=== PATIENT | male | born 2000 | race Caucasian/White ===

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

== ENCOUNTER 2020-07-31 15:26 | Emergency (ER) | payer SELFPAY ==
[2020-07-31 15:39] VITALS: BP 142/89; PULSE 95; RESP 20; TEMP 36.8; O2SAT 96; BMI 37.1
--- NOTE | 2020-07-31 16:09 | HMH.EDUTC ---
[facility] [place] Disposition Clinical Impression: Pharyngitis Qualifiers: Pharyngitis/tonsillitis etiology: unspecified etiology Qualified Code(s): J02.9 - Acute pharyngitis, unspecified Disposition: Home, Self-Care Condition on Discharge: Good Instructions: DI for Pharyngitis/Tonsillopharyngitis -- Adult, Preventing the Spread of Coronavirus Discharge Instructions Additional Instructions: Drink plenty of fluids. Take tylenol or ibuprofen for pain or fever. Take the medications as directed. Follow up with your regular doctor. GO TO THE ER FOR ANY WORSENING SYMPTOMS FOLLOW THE DIRECTIONS ON THE COVID-19 HAND OUT THAT WE GAVE YOU REGARDING SELF-ISOLATION UNTIL YOU KNOW YOUR COVID-19 RESULTS Prescriptions: Brompheniramine/Pseudoephed/Dm [Bromfed Dm Cough Syrup] 5 ml PO Q6HP PRN #240 syrup PRN Reason: Cough Transmission Status: Received by [facility] Ondansetron [Zofran 4mg ODT] 4 mg PO Q8HP PRN #9 tab.rapdis PRN Reason: Nausea Transmission Status: Received by [facility] Azithromycin [Z-Ion 250mg Tab*] 250 mg PO UD DOSE PK #6 tab Transmission Status: Received by [facility] Referrals: Kenn Hicks MD [Primary Care Provider] - Forms: Work/School Release Time of Disposition: 16:10 Medical Decision Making - Medical Records Medical records reviewed: No: I reviewed the patient's medical records. - Pipo Inquiry Pt receiving controlled substance: No Vital Signs: 07/31/20 15:39 07/31/20 16:18 Temperature 98.2 F 98.2 F Temperature Source Oral Pulse Rate 95 H Pulse Rate [Right Brachial] 95 H Respiratory Rate 20 20 Blood Pressure 142/89 H Blood Pressure [Right Arm] 142/89 H Blood Pressure Mean [Right Arm] 106 Blood Pressure Source [Right Arm] Automatic Cuff Blood Pressure Position [Right Arm] Sitting 02 Sat by Pulse Oximetry 96 Oxygen Delivery Method Room Air - Lab Data Lab results reviewed: Yes: I reviewed the patient's lab results. Lab Results 07/31/20 15:44: Strep Scn Rapid Clinic Negative Orders (Tests/Meds): ORDERS Category Date Time Status Strep Screen Confirmation Stat Micro 07/31/20 15:44 Received [facility] [place] HPI - General Stated complaint: Sore throat Time Seen by Provider: 07/31/20 15:45 Mode of Arrival: Ambulatory Source of Information: Patient Limitations: No Limitations Description of Symptoms (Recalled from Triage Doc. by RN): PATIENT C/O SORE THROAT SINCE THIS MORNING HEENT Symptoms (Recalled from RN notes): Yes Resp Symptoms (Recalled from RN notes): No Skin Symptoms (Recalled from RN notes): No MS Symptoms (Recalled from RN notes): No Functional Status (Recalled from RN notes): WNL - History of Present Illness Provider Complaint: He c/o sore throat since this morning. - Related Data Previous Rx's Medication Instructions Recorded Azithromycin [Z-Ion 250mg Tab*] 250 mg PO UD DOSE PK #6 tab 07/31/20 Brompheniramine/Pseudoephed/Dm 5 ml PO Q6HP PRN #240 syrup 07/31/20 [Bromfed Dm Cough Syrup] Ondansetron [Zofran 4mg ODT] 4 mg PO Q8HP PRN #9 tab.rapdis 07/31/20 Allergies Allergy/AdvReac Type Severity Reaction Status Date / Time No Known Allergies Allergy Verified 10/09/19 15:06 - Worker's Comp Is this a Worker's Comp case?: No [facility] History - Hepatitis A Screen Drug use history?: No High risk sexual behaviors?: No History of sexually transmitted infection?: No Currently employed?: No Childcare worker?: No Do you have indoor plumbing?: Yes Do you have electricity?: Yes Attestation statement:: This patient has been screened for Hepatitis A risk factors. I have reviewed the patient's past medical history: Yes Medical History: Denies:: Diabetes Mellitus Type 1, Diabetes Mellitus Type 2, Hypertension Other Surgeries: Yes: No Previous Surgery, Other Amputation: No Fractures: No Comment: DENTAL SURGERY - Social History Smoking Status: Never smoker Alcohol Intake: never Substa
[2020-07-31 16:18] VITALS: BP 142/89; PULSE 95; RESP 20; TEMP 36.8; O2SAT 96
[2020-07-31 20:27] LABS: UTC Strep Screen (Rapid) Negative (Negative)
== END 2020-07-31 16:20 | disposition home or self-care (01) ==
PROVIDERS: Emergency Provider Nurse Practitioner Family; PCP Emergency Medicine
DX: J02.9 Acute pharyngitis, unspecified (principal); Z20.828 Contact with and (suspected) exposure to other viral communicable diseases
CPT/HCPCS: 87880; 99202; U0003

== ENCOUNTER 2020-10-31 11:44 | Emergency (ER) | payer OTHER, SELFPAY ==
[2020-10-31 12:59] VITALS: BP 139/86; PULSE 93; RESP 16; TEMP 37; O2SAT 96; BMI 40.3
--- NOTE | 2020-10-31 13:03 | HMH.EDUTC ---
[facility] [place] Disposition Clinical Impression: Exposure to COVID-19 virus Disposition: Home, Self-Care Condition on Discharge: Good Instructions: DI for COVID-19 (Suspected or Confirmed ), Coronavirus Disease 2019, COVID-19: Testing and Tracing, Preventing the Spread of Coronavirus Discharge Instructions Additional Instructions: *Monitor Temp, Over the counter Motrin or Tylenol as directed/as needed Tylenol every 4 hours and Motrin every 6 hours (as long as your family doctor has told you that you can take it) for fever or pain. and straight to ER if unable to lower temp less than 101.0 after medication given *Warm salt water gargles may help to soothe the throat *Throat Lozenges *Warm fluids like tea with honey may help to soothe the throat *Sleep elevated *Humidifier/Vaporizer Follow up IMMEDIATELY for new or worsening symptoms or no Noticeable improvement over the next 48-72 hours. 911 for difficulty breathing or swallowing You were tested for today for COVID19 your test result should be back in the next 24-48 hours, you may call to the [facility] to see if your test results are back in the next 48 hours [phone] [facility] hours are 9am-9pm You was given a handout with instructions for Self Quarantine and Self isolation for while you wait on test results and what to do if they are positive If you are positive the Health Dept will be contacting you also Referrals: Kenn Hicks MD [Primary Care Provider] - As needed Time of Disposition: 13:05 Medical Decision Making - Pipo Inquiry Pt receiving controlled substance: No Pipo was queried for this patient: No Vital Signs: 10/31/20 12:59 Temperature 98.6 F Temperature Source Oral Pulse Rate [Right] 93 H Respiratory Rate 16 Blood Pressure [Right Arm] 139/86 Blood Pressure Mean [Right Arm] 103 Blood Pressure Source [Right Arm] Automatic Cuff Blood Pressure Position [Right Arm] Sitting 02 Sat by Pulse Oximetry 96 Oxygen Delivery Method Room Air Orders (Tests/Meds): ORDERS Category Date Time Status Covid-19 Nasal PCR ([facility]) Routine Lab 10/31/20 12:14 Ordered [facility] [place] HPI - General Stated complaint: covid exposure Time Seen by Provider: 10/31/20 13:03 Mode of Arrival: Ambulatory Source of Information: Patient Limitations: No Limitations Description of Symptoms (Recalled from Triage Doc. by RN): pt advises he has loss of taste and wants a covid test HEENT Symptoms (Recalled from RN notes): No Resp Symptoms (Recalled from RN notes): No Skin Symptoms (Recalled from RN notes): No MS Symptoms (Recalled from RN notes): No Functional Status (Recalled from RN notes): na - History of Present Illness Provider Complaint: Patient states that someone in the house recently tested positive for COVID State that he has been having cough and drainage and recently loss his sense of taste and smell so he wanted to come in and get tested - Related Data Previous Rx's Medication Instructions Recorded Azithromycin [Z-Ion 250mg Tab*] 250 mg PO UD DOSE PK #6 tab 07/31/20 Brompheniramine/Pseudoephed/Dm 5 ml PO Q6HP PRN #240 syrup 07/31/20 [Bromfed Dm Cough Syrup] Ondansetron [Zofran 4mg ODT] 4 mg PO Q8HP PRN #9 tab.rapdis 07/31/20 Allergies Allergy/AdvReac Type Severity Reaction Status Date / Time No Known Allergies Allergy Verified 10/09/19 15:06 - Worker's Comp Is this a Worker's Comp case?: No [facility] History - Hepatitis A Screen Drug use history?: No High risk sexual behaviors?: No History of sexually transmitted infection?: No Currently employed?: No Childcare worker?: No Do you have indoor plumbing?: Yes Do you have electricity?: Yes Attestation statement:: This patient has been screened for Hepatitis A risk factors. I have reviewed the patient's past medical history: Yes Medical History: Denies:: Diabetes Mellitus Type 1, Diabetes Mellitus Type 2, Hypertension Other Surgeries: Yes: No Previous Surgery, Other Amputation: No Fractures: No Co
[2020-10-31 13:11] VITALS: BP 139/86; PULSE 87; RESP 16; TEMP 37.1; O2SAT 98
--- NOTE | 2020-10-31 21:24 | PC.NURSE ---
called pt and notified him of positive covid results along with his girlfriend and mother. All live together. Claudette Maki and Miley Joseph
== END 2020-10-31 13:12 | disposition home or self-care (01) ==
PROVIDERS: Emergency Provider Nurse Practitioner; PCP Emergency Medicine
DX: U07.1 COVID-19 (principal)
CPT/HCPCS: 99202; G0463; U0003

== ENCOUNTER → 2021-06-27 11:43 | Outpatient (CLI) | payer SELFPAY ==
[2021-06-27 16:25] LABS: Semen Viscosity Normal (Normal); Volume,Semen 5.8 ml (2.0-5.0); WBCs,Semen Trace
[2021-06-27 16:26] LABS: PH,Semen 8.5 (7.3-8.3); Sperm Count 58 mil/mm3 (20-160)
[2021-06-27 16:28] LABS: 3Hr Motility Quality Rapid Progression (Mod-Rapid); 3Hr Sperm Motility 65 % (50-60); Motility Quality Rapid Progression (Mod-Rapid); Sperm Morphology N (Normal); Sperm Motility 80 % (50-90)
== END ==
PROVIDERS: Visit Provider Obstetrics & Gynecology
DX: Z31.69 Encounter for other general counseling and advice on procreation (principal)
CPT/HCPCS: 89320

== ENCOUNTER 2021-10-15 11:34 | Emergency (ER) | payer OTHER, SELFPAY ==
[2021-10-15 12:38] VITALS: BP 167/98; PULSE 89; RESP 18; TEMP 36.8; O2SAT 98; BMI 39.9
--- NOTE | 2021-10-15 12:45 | HMH.EDUTC ---
[facility] [place] Dis[place] Clinical Impression: Sinusitis Qualifiers: Sinusitis location: unspecified location Chronicity: unspecified Qualified Code(s): J32.9 - Chronic sinusitis, unspecified Disposition: Home, Self-Care Condition on Discharge: Good Instructions: Sinusitis, DI for Sinusitis Additional Instructions: *Monitor Temp, Over the counter Motrin or Tylenol as directed/as needed Tylenol every 4 hours and Motrin every 6 hours (as long as your family doctor has told you that you can take it) for fever or pain. and straight to ER if unable to lower temp less than 101.0 after medication given *Warm salt water gargles may help to soothe the throat *Throat Lozenges *Warm fluids like tea with honey may help to soothe the throat *Sleep elevated *Humidifier/Vaporizer *Flonase 2 sprays in each nostril daily but be aware that it may take 2-3 days before you notice improvement Take medication as prescribed Follow up if no improvement Follow up IMMEDIATELY for new or worsening symptoms or no Noticeable improvement over the next 48-72 hours. 911 for difficulty breathing or swallowing Prescriptions: Benzonatate [Benzonatate 100mg cap] 100 mg PO Q8HP PRN #15 cap PRN Reason: Cough Transmission Status: Pending to [facility] Amoxicillin/Potassium Clav [Augmentin 875-125 Tablet] 1 tab PO Q12H 10 Days #20 tab Transmission Status: Pending to [facility] predniSONE [Prednisone 20mg Tab] 20 mg PO BID 5 Days #10 tab [facility]: [facility] Referrals: Provider,Referral, MD [Primary Care Provider] - As needed Forms: Work/School Release Time of Disposition: 12:48 Medical Decision Making - Pipo Inquiry Pt receiving controlled substance: No Pipo was queried for this patient: No Vital Signs: 10/15/21 12:38 Temperature 98.2 F Temperature Source Oral Pulse Rate [Right Radial] 89 Respiratory Rate 18 Blood Pressure [Right Arm] 167/98 H Blood Pressure Mean [Right Arm] 121 Blood Pressure Source [Right Arm] Automatic Cuff Blood Pressure Position [Right Arm] Sitting 02 Sat by Pulse Oximetry 98 Oxygen Delivery Method Room Air [facility] [place] HPI - General Stated complaint: sore throat, cough, congestion Time Seen by Provider: 10/15/21 12:45 Mode of Arrival: Ambulatory Source of Information: Patient Limitations: No Limitations Description of Symptoms (Recalled from Triage Doc. by RN): Pt stated congestion, runny nose, sneezing, coughinh, ear pain, and sore throat. HEENT Symptoms (Recalled from RN notes): Yes Resp Symptoms (Recalled from RN notes): Yes Skin Symptoms (Recalled from RN notes): No MS Symptoms (Recalled from RN notes): No Functional Status (Recalled from RN notes): n/a - History of Present Illness Provider Complaint: Patient state that he feels like he has a sinus infection States that he has been having pain and pressure in his sinuses and behind his eyes, ears feel full and have pressure and hurt and having scratchy throat and cough States that it has been getting worse over the last week and getting worse so he came in - Related Data Home Medications Medication Instructions Recorded Confirmed Topiramate 50 mg PO DAILY 10/15/21 10/15/21 Previous Rx's Medication Instructions Recorded Azithromycin [Z-Ion 250mg Tab*] 250 mg PO UD DOSE PK #6 tab 07/31/20 Brompheniramine/Pseudoephed/Dm 5 ml PO Q6HP PRN #240 syrup 07/31/20 [Bromfed Dm Cough Syrup] Ondansetron [Zofran 4mg ODT] 4 mg PO Q8HP PRN #9 tab.rapdis 07/31/20 Amoxicillin/Potassium Clav 1 tab PO Q12H 10 Days #20 tab 10/15/21 [Augmentin 875-125 Tablet] Benzonatate [Benzonatate 100mg 100 mg PO Q8HP PRN #15 cap 10/15/21 cap] predniSONE [Prednisone 20mg 20 mg PO BID 5 Days #10 tab 10/15/21 Tab] Allergies Allergy/AdvReac Type Severity Reaction Status Date / Time No Known Allergies Allergy Verified 10/15/21 12:43 - Worker's Comp Is this a Worker's Comp case?: No Is this
[2021-10-15 12:55] VITALS: BP 167/98; PULSE 89; RESP 18; TEMP 36.8; O2SAT 98
== END 2021-10-15 12:55 | disposition home or self-care (01) ==
PROVIDERS: Emergency Provider Nurse Practitioner
DX: J32.9 Chronic sinusitis, unspecified (principal); J02.9 Acute pharyngitis, unspecified
CPT/HCPCS: 99202; G0463

== ENCOUNTER 2021-11-12 11:04 | Emergency (ER) | payer OTHER, SELFPAY ==
[2021-11-12 12:20] VITALS: BP 160/91; PULSE 88; RESP 19; TEMP 37; O2SAT 97; BMI 41.9
--- NOTE | 2021-11-12 12:31 | XR_ITS ---
FINAL REPORT CLINICAL HISTORY: PAIN, no injury FINDINGS: LEFT SHOULDER 3 views of the left shoulder were obtained. There is no acute fracture or dislocation. Visualized joint spaces are normally aligned. Soft tissues are unremarkable. IMPRESSION: No acute bony abnormality. Reviewed, Interpreted and Dictated by Placido Sanchez III, MD Transcribed by Keily Rahman Authenticated by Placido Sanchez III, MD on 11/12/2021 02:00:[address] [facility]
--- NOTE | 2021-11-12 12:31 | XR_ITS ---
FINAL REPORT CLINICAL HISTORY: PAIN, no injury FINDINGS: CERVICAL SPINE 3 views were obtained. There is no acute fracture. There is no malalignment. The disc spaces are preserved. There is no soft tissue abnormality. IMPRESSION: No acute bony abnormality. Reviewed, Interpreted and Dictated by Placido Sanchez III, MD Transcribed by Keily Rahman Authenticated by Placido Sanchez III, MD on 11/12/2021 02:00:30 PM [facility]
--- NOTE | 2021-11-12 12:51 | HMH.EDUTC ---
[facility] – [place] Disposition Clinical Impression: Muscle spasm Disposition: Home, Self-Care Condition on Discharge: Good Instructions: Methocarbamol, Etodolac, DI for Muscle Spasm Additional Instructions: *Etodolac anderson 8 hours with meal as needed for pain/inflammation *Not additional anti-inflammatory like ibuprofen motrin, aleve, advil with the above amount of Etodolac. You can still take Tylenol every 4 hours as needed if you need something else for pain *Ice 20 minutes every 2 hours for the first 48 hours after the initial injury followed by moist heat every 20 minutes 3-4 times a day to affected area *Muscle relaxer every 12 hours as needed for muscle spasms but remember, it WILL cause drowsiness You cannot take it and drive, operate machinery or care for small children. *Keep this area active, no movement leads to more stiffness, However take it easy and avoid heavy lifting pushing or pulling *Follow up with you family doctor if no improvement for further treatment Call back to the [facility] later this evening for the official reading on your xray Prescriptions: Etodolac 200 mg PO Q8HP PRN #20 cap PRN Reason: Moderate Pain Transmission Status: Received by [facility] methocarbamoL [Methocarbamol] 500 mg PO BID PRN #15 tab PRN Reason: Muscle Spasm Transmission Status: Received by [facility] Referrals: Provider,Referral, [Primary Care Provider] - Forms: Work/School Release Time of Disposition: 14:12 Medical Decision Making - Pipo Inquiry Pt receiving controlled substance: No Pipo was queried for this patient: No Vital Signs: 11/12/21 12:20 11/12/21 14:09 Temperature 98.6 F 98.6 F Temperature Source Oral Pulse Rate 88 Pulse Rate [Right Brachial] 88 Respiratory Rate 19 19 Blood Pressure 160/91 H Blood Pressure [Right Arm] 160/91 H Blood Pressure Mean [Right Arm] 114 Blood Pressure Source [Right Arm] Automatic Cuff Blood Pressure Position [Right Arm] Sitting 02 Sat by Pulse Oximetry 97 Oxygen Delivery Method Room Air - Radiology Data #1 Image(s): Shoulder Image Reviewed: Yes I reviewed the patient's radiology image Preliminary Findings: No Fracture Seen #2 Image(s): C-Spine Image Reviewed: Yes I reviewed the patient's radiology image Preliminary Findings: No Fracture Seen [facility] [place] HPI - General Stated complaint: left arm pain and back pain, no accident Time Seen by Provider: 11/12/21 12:51 Mode of Arrival: Ambulatory Source of Information: Patient Limitations: No Limitations Description of Symptoms (Recalled from Triage Doc. by RN): PATIENT C/O UPPER BACK AND LEFT SHOULDER PAIN X 1 WEEK. 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 and for the last week he has been having tightness/spasms in his left shoulder area and upper shoulder/back area State that pain is worse with movement States that he went to the chiropracter but he was too tight and they wouldnt do anything so he came here State that pain is worse with movement and raising his arm - Related Data Home Medications Medication Instructions Recorded Confirmed Dextroamphetamine/Amphetamine 10 mg PO DAILY 11/12/21 11/12/21 [Adderall 10 mg Tablet] Topiramate [Topamax] 50 mg PO DAILY 11/12/21 11/12/21 Previous Rx's Medication Instructions Recorded Etodolac 200 mg PO Q8HP PRN #20 cap 11/12/21 methocarbamoL [Methocarbamol] 500 mg PO BID PRN #15 tab 11/12/21 Allergies Allergy/AdvReac Type Severity Reaction Status Date / Time No Known Allergies Allergy Verified 10/15/21 12:43 - Worker's Comp Is this a Worker's Comp case?: No [facility] History - Hepatiti
[2021-11-12 14:09] VITALS: BP 160/91; PULSE 88; RESP 19; TEMP 37; O2SAT 97
== END 2021-11-12 14:13 | disposition home or self-care (01) ==
PROVIDERS: Emergency Provider Nurse Practitioner
DX: M79.622 Pain in left upper arm (principal); M62.838 Other muscle spasm
CPT/HCPCS: 72040; 73030; 99202; G0463

== ENCOUNTER → 2022-06-03 12:38 | Outpatient (CLI) | payer OTHER, SELFPAY ==
[2022-06-03 14:16] LABS: Chloride 104 mmol/L (98-107); Potassium 3.7 mmoL/L (3.5-5.1); Sodium 140 mmol/L (136-145)
[2022-06-03 14:18] LABS: Alanine Aminotransferase 31 U/L (12-78); Anion Gap 8.7 mEq/L (5-15); Aspartate Amino Transferase 34 U/L (17-59); Blood Urea Nitrogen 12 mg/dl (9-20); Carbon Dioxide 31 mmol/L (22.0-30.0); Estimated Glomerular Filt Rate 105 ml/min (>60); GFR (African American) 127 ML/MIN (>60)
[2022-06-03 14:19] LABS: Albumin Level 4.3 g/dl (3.5-5.0); Albumin/Globulin Ratio 1.8 (1.1-1.8); Alkaline Phosphatase 110 U/L (38-126); Bilirubin,Total 0.4 mg/dl (0.2-1.3); Calcium 9.7 mg/dl (8.4-10.2); Chol/HDL Ratio 4.5 (1-3.5); Cholesterol 177 mg/dl (140-200); Globulin 2.4 g/dL (1.3-3.2); Glucose 94 mg/dl (74-100); HDL Cholesterol 39 mg/dl (40-60); Total Protein,Serum 6.7 g/dl (6.3-8.2); Triglycerides 212 mg/dl (30-150); VLDL Cholesterol 42 mg/dL (0-40)
[2022-06-03 14:52] LABS: Basophils # 0.1 K/mm3 (0-0.2); Basophils % 1.2 % (0.1-2.0); Eosinophils # 0.1 K/mm3 (0.0-0.4); Eosinophils % 1.3 % (0.1-12.0); Hematocrit 51.4 % (42.0-52.0); Hemoglobin 17.2 g/dL (14.1-18.0); Lymphocytes # 2.9 K/mm3 (0.7-4.5); Lymphocytes % 35.7 % (10-50); Mean Corpuscular HGB Conc 33.5 g/dL (31.8-35.4); Mean Corpuscular Hemoglobin 31.6 pg (27.0-31.2); Mean Corpuscular Volume 94.3 fl (80-94); Mean Platelet Volume 7.9 fl (7.4-10.4); Monocytes # 0.6 K/mm3 (0.1-1.0); Monocytes % 7.3 % (1.7-9.3); Neutrophils # 4.4 K/mm3 (1.8-7.8); Neutrophils % 54.5 % (37.0-80.0); Platelet Count 256 K/mm3 (142-424); Red Blood Count 5.45 M/mm3 (4.60-6.20); Red Cell Distribution Width 13.6 % (11.5-17.5)
[2022-06-05 07:15] LABS: Direct LDL Cholesterol 100 mg/dL (100-129)
== END ==
PROVIDERS: PCP Family Medicine Sports Medicine; Visit Provider Nurse Practitioner Family
DX: R00.2 Palpitations (principal)
CPT/HCPCS: 36415; 80053; 80061; 85025

== ENCOUNTER 2022-07-29 13:07 | Emergency (ER) | payer OTHER, SELFPAY ==
[2022-07-29 13:08] VITALS: BP 143/103; PULSE 87; RESP 18; TEMP 36.7; O2SAT 95; BMI 41.9
--- NOTE | 2022-07-29 13:58 | EXP.UTC ---
Discharge Plan Disposition Patient Disposition: Home, Self-Care Condition: Good Prescriptions Prescriptions: New azithromycin [Zithromax] 250 mg tablet 250 mg PO UD DOSE PK Qty: 6 0RF Rx Instructions: Take two (2) tablets today, then one (1) tablet days #2 thru #5 [id number]-[id number]-UY [Bromfed DM] 2-30-10 mg/5 mL Syrup 5 ml PO Q6H PRN (Reason: Cough) Qty: 240 0RF ondansetron 4 mg Tablet,Disintegrating 4 mg PO Q8H PRN (Reason: Nausea) Qty: 12 0RF No Action dextroamphetamine-amphetamine 10 MG tablet 10 mg PO DAILY topiramate 50 MG tablet 50 mg PO DAILY methocarbamol 500 MG tablet 500 mg PO BID PRN (Reason: Muscle Spasm) Qty: 15 0RF etodolac 200 MG capsule 200 mg PO Q8HP PRN (Reason: Moderate Pain) Qty: 20 0RF Referrals Follow up/Referrals: Alberto Daley MBBS [Primary Care Provider] - See instructions Activity Restrictions/Add. Instructions Additional Instructions/Restrictions: Drink plenty of fluids. Take tylenol or ibuprofen for pain or fever. Take the medications as directed. Follow up with your regular doctor. GO TO THE ER FOR ANY WORSENING SYMPTOMS Quarantine until you know the results of your covid-19 test. Notify your school or workplace of your results and follow their instructions regarding return to work/school. Clinical Impressions Clinical Impression: Pharyngitis, Sinusitis Stand Alone Forms Stand Alone Forms: Work/School Release Instructions Patient Instructions: Sinusitis, DI for Sinusitis Discharge ED Provider: Sebastian Salgado [facility] [place] H[place] General Stated complaint: Sore throat, dry sinuses, cough, BA Time Seen by Provider: 07/29/22 14:19 History of Present Illness Provider Complaint: He states that for the past 1 day he has had sore throat, chills, body aches. Related Data Home Medications Medication Instructions Recorded Confirmed dextroamphetamine-amphetamine 10 10 mg PO DAILY ADHD 11/12/21 11/12/21 mg tablet topiramate 50 mg tablet 50 mg PO DAILY MIGRAINES 11/12/21 11/12/21 Previous Rx's Medication Instructions Recorded etodolac 200 mg capsule 200 mg PO Q8HP PRN Moderate Pain 11/12/21 #20 caps methocarbamol 500 mg tablet 500 mg PO BID PRN Muscle Spasm #15 11/12/21 tabs azithromycin 250 mg tablet 250 mg PO UD DOSE PK #6 tabs 07/29/22 (Zithromax) [id number]-mjzxmmrokmlkdpi-QU 5 ml PO Q6H PRN Cough #240 mL 07/29/22 2 mg-30 mg-10 mg/5 mL oral syrup (Bromfed DM) ondansetron 4 mg disintegrating 4 mg PO Q8H PRN Nausea #12 tabs 07/29/22 tablet Allergies Allergy/AdvReac Type Severity Reaction Status Date / Time No Known Allergies Allergy Verified 10/15/21 12:43 PFSH PFSH Social History Smoking Status: Never smoker alcohol intake: never substance use type: denies use current occupational status: employed Travel in the last 8 weeks: None household members: family housing: house ROS Obtained: Yes All systems reviewed & no additional complaints except as documented Constitutional Constitutional: Reports chills and Reports fever(s) Eyes Eyes: Denies eye discharge ENT Ears, Nose, Mouth, and Throat: Reports as per HPI Cardiovascular Cardiovascular: Denies chest pain Respiratory Respiratory: Denies chest congestion and Reports cough Gastrointestinal Gastrointestingal: Reports nausea; Denies abdominal pain, constipation, cramping, diarrhea or vomiting Musculoskeletal Musculoskeletal: Denies arthralgias Integumentary/Breasts Skin/Breast: Denies rash Neurologic Neurologic: Denies paresthesias Physical Exam General General appearance: alert and in no apparent distress Head Head exam: atraumatic, normocephalic and normal inspection Eye Eye exam: Present normal appearance, PERRL and EOMI ENT ENT exam: Present mucous membranes moist and normal external ear exam Expanded ENT Exam TM/Canal exam: Bilatera
[2022-07-29 14:12] LABS: UTC Strep Screen (Rapid) Positive (Negative)
[2022-07-29 14:35] VITALS: BP 143/103; PULSE 87; RESP 18; TEMP 36.7; O2SAT 98
== END 2022-07-29 14:37 | disposition home or self-care (01) ==
PROVIDERS: Emergency Provider Nurse Practitioner Family; PCP Family Medicine Sports Medicine
DX: J32.9 Chronic sinusitis, unspecified (principal)
CPT/HCPCS: 87880; 99212; C9803; G0463; U0003; U0005

== ENCOUNTER 2022-09-15 00:15 | Emergency (ER) | payer OTHER, SELFPAY ==
[2022-09-15 00:18] VITALS: BP 152/101; PULSE 132; RESP 18; TEMP 37.9; O2SAT 98; BMI 34.7
--- NOTE | 2022-09-15 00:49 | HMH.EDURI ---
Discharge Plan Disposition Patient Disposition: Home, Self-Care Chief Complaint: Upper Respiratory Infection Prescriptions Prescriptions: No Action dextroamphetamine-amphetamine 10 MG tablet 10 mg PO DAILY topiramate 50 MG tablet 50 mg PO DAILY methocarbamol 500 MG tablet 500 mg PO BID PRN (Reason: Muscle Spasm) Qty: 15 0RF etodolac 200 MG capsule 200 mg PO Q8HP PRN (Reason: Moderate Pain) Qty: 20 0RF azithromycin [Zithromax] 250 mg tablet 250 mg PO UD DOSE PK Qty: 6 0RF Rx Instructions: Take two (2) tablets today, then one (1) tablet days #2 thru #5 [id number]-gjavxcgbn-QW [Bromfed DM] 2-30-10 mg/5 mL Syrup 5 ml PO Q6H PRN (Reason: Cough) Qty: 240 0RF ondansetron 4 mg Tablet,Disintegrating 4 mg PO Q8H PRN (Reason: Nausea) Qty: 12 0RF Referrals Follow up/Referrals: Alberto Daley MBBS [Primary Care Provider] - See instructions Clinical Impressions Clinical Impression: COVID-19 Instructions Patient Instructions: DI for COVID-19 (Suspected or Confirmed ) Discharge ED Provider: Kenn Hicks URI/Sore Throat HPI General Chief Complaint: Upper Respiratory Infection Stated Complaint: pressure in face & ears,cough,dizziness,confused Time Seen by Provider: 09/15/22 00:49 Mode of Arrival: Ambulatory Source of Information: Patient, Spouse and Medical Record Limitations: No Limitations Description of Symptoms (Recalled from ER Triage Doc. by RN): pt reports that his head feels like its going to explode History of Present Illness HPI Narrative: uri sx over the last few days with jaramillo and sinus congestion - no known exposure Complaint: sore throat, nasal congestion and sinus pain Onset (ago): day(s) Duration: intermittent Severity: moderate Able to tolerate fluids by mouth: Yes Treatments prior to arrival: none Related Data Home Medications Medication Instructions Recorded Confirmed dextroamphetamine-amphetamine 10 10 mg PO DAILY ADHD 11/12/21 11/12/21 mg tablet topiramate 50 mg tablet 50 mg PO DAILY MIGRAINES 11/12/21 11/12/21 Previous Rx's Medication Instructions Recorded etodolac 200 mg capsule 200 mg PO Q8HP PRN Moderate Pain 11/12/21 #20 caps methocarbamol 500 mg tablet 500 mg PO BID PRN Muscle Spasm #15 11/12/21 tabs azithromycin 250 mg tablet 250 mg PO UD DOSE PK #6 tabs 07/29/22 (Zithromax) htqsmfwqvinskty-nnvffqalxroubcz-JS 5 ml PO Q6H PRN Cough #240 mL 07/29/22 2 mg-30 mg-10 mg/5 mL oral syrup (Bromfed DM) ondansetron 4 mg disintegrating 4 mg PO Q8H PRN Nausea #12 tabs 07/29/22 tablet Allergies Allergy/AdvReac Type Severity Reaction Status Date / Time No Known Allergies Allergy Verified 10/15/21 12:43 PFSH PFSH Social History Smoking Status: Former smoker alcohol intake: never substance use type: denies use current occupational status: employed Travel in the last 8 weeks: None household members: family housing: house ROS Obtained: Yes All systems reviewed & no additional complaints except as documented Physical Exam General General appearance: alert and obese Head Head exam: normocephalic Eye Eye exam: Present PERRL and EOMI ENT ENT exam: Present normal oropharynx and mucous membranes moist Expanded ENT Exam TM/Canal exam: Bilateral TM: effusion Neck Neck exam: Present full ROM and trachea midline Respiratory Respiratory exam: Present other (few rhonchi ); Absent respiratory distress Cardiovascular Cardiovascular exam: Present regular rate Abdominal Exam Abdominal exam: Present soft Extremities Exam Extremities exam: Present full ROM Neurological Exam Neurological exam: Present alert, oriented X3 and CN II-XII intact Psychiatric Psychiatric exam: Present normal affect Skin Skin exam: Absent rash Medical Decision Making Medical Records Medical records reviewed: Yes I reviewed the patient's medical records. Pipo Mccain
[2022-09-15 00:57] LABS: Influenza A, PCR Not Detected (NotDetected); Influenza B, PCR Not Detected (NotDetected)
[2022-09-15 01:15] LABS: Basophils # 0.2 K/mm3 (0-0.2); Basophils % 1.4 % (0.1-2.0); Eosinophils # 0.1 K/mm3 (0.0-0.4); Eosinophils % 1.2 % (0.1-12.0); Hematocrit 49.7 % (42.0-52.0); Lymphocytes # 1.3 K/mm3 (0.7-4.5); Lymphocytes % 12.3 % (10-50); Mean Corpuscular HGB Conc 34.2 g/dL (31.8-35.4); Mean Corpuscular Volume 93.5 fl (80-94); Mean Platelet Volume 7.4 fl (7.4-10.4); Monocytes # 0.8 K/mm3 (0.1-1.0); Monocytes % 8.1 % (1.7-9.3); Neutrophils # 7.9 K/mm3 (1.8-7.8); Neutrophils % 77.1 % (37.0-80.0); Platelet Count 233 K/mm3 (142-424); Red Blood Count 5.32 M/mm3 (4.60-6.20); White Blood Count 10.2 K/mm3 (4.8-10.8)
[2022-09-15 01:29] LABS: Strep Scrn Group A (Rapid) Negative (Negative)
[2022-09-15 01:30] LABS: Coronavirus 19, PCR Detected (NotDetected)
[2022-09-15 01:32] LABS: Chloride 96 mmol/L (98-107); Sodium 140 mmol/L (136-145)
[2022-09-15 01:33] LABS: Potassium 3.4 mmoL/L (3.5-5.1)
[2022-09-15 01:35] LABS: Alanine Aminotransferase 35 U/L (12-78); Albumin Level 4.6 g/dl (3.5-5.0); Albumin/Globulin Ratio 1.7 (1.1-1.8); Alkaline Phosphatase 94 U/L (38-126); Anion Gap 15.4 mEq/L (5-15); Aspartate Amino Transferase 36 U/L (17-59); Bilirubin,Total 0.8 mg/dl (0.2-1.3); Blood Urea Nitrogen 8 mg/dl (9-20); Carbon Dioxide 32 mmol/L (22.0-30.0); Creatinine Clearance Estimated 158 mL/min (50-200); Estimated Glomerular Filt Rate 93 ml/min (>60); GFR (African American) 112 ML/MIN (>60); Globulin 2.7 g/dL (1.3-3.2); Total Protein,Serum 7.3 g/dl (6.3-8.2)
[2022-09-15 01:36] LABS: Calcium 9.6 mg/dl (8.4-10.2); Glucose 79 mg/dl (74-100)
[2022-09-15 01:44] VITALS: BP 150/90; PULSE 110; RESP 18; TEMP 36.8; O2SAT 99
== END 2022-09-15 01:59 | disposition home or self-care (01) ==
PROVIDERS: Emergency Provider Emergency Medicine; PCP Family Medicine Sports Medicine
DX: U07.1 COVID-19 (principal); R11.0 Nausea; R42 Dizziness and giddiness; R51.9 Headache, unspecified; R09.89 Other specified symptoms and signs involving the circulatory and respiratory systems; M62.838 Other muscle spasm; E66.9 Obesity, unspecified; Z68.34 Body mass index [BMI] 34.0-34.9, adult; Z79.899 Other long term (current) drug therapy; Z87.891 Personal history of nicotine dependence
CPT/HCPCS: 80053; 85025; 87430; 96360; 96374; 96375; 99284; C9803; U0003; U0005

== ENCOUNTER → 2022-10-28 15:17 | Outpatient (CLI) | payer OTHER, SELFPAY ==
[2022-10-28 15:32] LABS: Basophils # 0.1 K/mm3 (0-0.2); Basophils % 1.4 % (0.1-2.0); Eosinophils # 0.2 K/mm3 (0.0-0.4); Eosinophils % 1.5 % (0.1-12.0); Hematocrit 47.9 % (42.0-52.0); Hemoglobin 16.7 g/dL (14.1-18.0); Lymphocytes # 2.9 K/mm3 (0.7-4.5); Lymphocytes % 29.2 % (10-50); Mean Corpuscular HGB Conc 34.8 g/dL (31.8-35.4); Mean Corpuscular Hemoglobin 32.1 pg (27.0-31.2); Mean Corpuscular Volume 92.2 fl (80-94); Mean Platelet Volume 7.6 fl (7.4-10.4); Monocytes # 0.6 K/mm3 (0.1-1.0); Monocytes % 6.3 % (1.7-9.3); Neutrophils # 6.1 K/mm3 (1.8-7.8); Neutrophils % 61.6 % (37.0-80.0); Platelet Count 261 K/mm3 (142-424)
[2022-10-28 15:56] LABS: Chol/HDL Ratio 5.1 (1-3.5); Cholesterol 164 mg/dl (140-200); HDL Cholesterol 32 mg/dl (40-60); Triglycerides 292 mg/dl (30-150); VLDL Cholesterol 58 mg/dL (0-40)
[2022-10-28 16:06] LABS: Direct LDL Cholesterol 70.37 mg/dL (100-129)
[2022-10-28 16:26] LABS: Thyroid Stimulating Hormone 1.12 uIU/mL (0.465-4.68)
== END ==
LOC: LAB 15:18
PROVIDERS: Visit Provider Nurse Practitioner Family
DX: I36.1 Nonrheumatic tricuspid (valve) insufficiency (principal); E78.00 Pure hypercholesterolemia, unspecified
CPT/HCPCS: 36415; 80061; 84443; 85025

== ENCOUNTER 2022-12-19 00:02 | Emergency (ER) | payer OTHER, BC, SELFPAY ==
--- NOTE | 2022-12-18 23:58 | ECG_ITS ---
APPROVED REPORT Exam: Resting ECG HR:117 bpm ECG Measurements Heart Rate 117 AXES ND 166 P 24 QRSd 110 QRS 101 QT 348 T -7 QTc 418 Conclusion SINUS TACHYCARDIA RIGHT AXIS DEVIATION [QRS AXIS > 100] NONSPECIFIC T-WAVE ABNORMALITY ABNORMAL ECG UNCONFIRMED REPORT Electronically signed by : David Acevedo MD 12/20/2022 18:55:53
[2022-12-19 00:02] VITALS: BP 162/95; PULSE 116; RESP 14; TEMP 37; O2SAT 100; BMI 43.5
[2022-12-19 00:08] VITALS: BMI 43.5
--- NOTE | 2022-12-19 00:18 | XR_ITS ---
PROCEDURE INFORMATION: Exam: XR Chest Exam date and time: 12/19/2022 12:32 AM Age: 22 years old Clinical indication: Pain; Chest pressure; Additional info: Chest pain TECHNIQUE: Imaging protocol: Radiologic exam of the chest. Views: 2 views. COMPARISON: CR XR SHOULDER LT MIN 2V 11/12/2021 12:48 PM FINDINGS: Lungs: Unremarkable. No consolidation. Lung volumes are low. Pleural spaces: Unremarkable. No pleural effusion. No pneumothorax. Heart/Mediastinum: Unremarkable. No cardiomegaly. Vasculature: Unremarkable. Bones/joints: Unremarkable. IMPRESSION: No acute findings.
--- NOTE | 2022-12-19 00:25 | CT_ITS ---
PROCEDURE INFORMATION: Exam: CTA Chest With Contrast Exam date and time: 12/19/2022 12:50 AM Age: 22 years old Clinical indication: Pain; Chest pressure TECHNIQUE: Imaging protocol: Computed tomographic angiography of the chest with contrast. 3D rendering (Not supervised by radiologist): MIP and/or 3D reconstructed images were created by the technologist. Radiation optimization: All CT scans at this facility use at least one of these dose optimization techniques: automated exposure control; mA and/or kV adjustment per patient size (includes targeted exams where dose is matched to clinical indication); or iterative reconstruction. Contrast material: ISOVUE; Contrast volume: 70 ml; Contrast route: INTRAVENOUS (IV); Other protocol: This patient has received 0 known CTs and 0 known cardiac nuclear medicine studies in the 12 months prior to the current study. COMPARISON: CR Chest 12/19/2022 12:32 AM FINDINGS: Pulmonary arteries: Normal. No pulmonary emboli. Aorta: Unremarkable. No aortic aneurysm. No aortic dissection. Lungs: Calcified granulomas within the right upper and lower lobes. Pleural spaces: Unremarkable. No pneumothorax. No pleural effusion. Heart: Unremarkable. No cardiomegaly. No pericardial effusion. Lymph nodes: Calcified mediastinal and right hilar lymph nodes. Bones/joints: Unremarkable. No acute fracture. Soft tissues: Unremarkable. IMPRESSION: 1. There is no pulmonary embolus or acute aortic finding. 2. No acute pulmonary finding. 3. Evidence for prior granulomatous exposure.
[2022-12-19 00:29] LABS: Basophils # 0.2 K/mm3 (0-0.2); Eosinophils # 0.1 K/mm3 (0.0-0.4); Eosinophils % 1.4 % (0.1-12.0); Hematocrit 49.5 % (42.0-52.0); Lymphocytes # 3.9 K/mm3 (0.7-4.5); Lymphocytes % 36.7 % (10-50); Mean Corpuscular HGB Conc 36.3 g/dL (31.8-35.4); Mean Corpuscular Hemoglobin 32.4 pg (27.0-31.2); Mean Corpuscular Volume 89.2 fl (80-94); Mean Platelet Volume 7.9 fl (7.4-10.4); Monocytes # 0.6 K/mm3 (0.1-1.0); Monocytes % 5.2 % (1.7-9.3); Neutrophils # 5.8 K/mm3 (1.8-7.8); Neutrophils % 54.7 % (37.0-80.0); Platelet Count 263 K/mm3 (142-424); Red Blood Count 5.55 M/mm3 (4.60-6.20); Red Cell Distribution Width 13.4 % (11.5-17.5); White Blood Count 10.6 K/mm3 (4.8-10.8)
[2022-12-19 00:30] VITALS: BP 125/77; PULSE 72; RESP 14; O2SAT 95
[2022-12-19 00:32] LABS: Anion Gap 9.2 mEq/L (5-15); Blood Urea Nitrogen 10 mg/dl (9-20); Calcium 9.4 mg/dl (8.4-10.2); Carbon Dioxide 31 mmol/L (22.0-30.0); Chloride 107 mmol/L (98-107); Creatinine Clearance Estimated 114 mL/min (50-200); Estimated Glomerular Filt Rate 104 ml/min (>60); GFR (African American) 125 ML/MIN (>60); Glucose 88 mg/dl (74-100); Potassium 3.2 mmoL/L (3.5-5.1); Sodium 144 mmol/L (136-145)
--- NOTE | 2022-12-19 00:43 | PC.NURSE ---
pt to rad
--- NOTE | 2022-12-19 00:43 | PC.NURSE ---
pt gone to CT @ this time
[2022-12-19 00:46] LABS: Troponin I < 0.01 ng/ml (0.00-0.034)
--- NOTE | 2022-12-19 00:51 | HMH.EDGENADL ---
Discharge Plan Disposition Patient Disposition: Home, Self-Care Prescriptions Prescriptions: New cephalexin [cephalexin] 500 mg capsule 500 mg PO TID Qty: 21 0RF No Action dextroamphetamine-amphetamine 10 MG tablet 10 mg PO DAILY topiramate 50 MG tablet 50 mg PO DAILY methocarbamol 500 MG tablet 500 mg PO BID PRN (Reason: Muscle Spasm) Qty: 15 0RF etodolac 200 MG capsule 200 mg PO Q8HP PRN (Reason: Moderate Pain) Qty: 20 0RF azithromycin [Zithromax] 250 mg tablet 250 mg PO UD DOSE PK Qty: 6 0RF Rx Instructions: Take two (2) tablets today, then one (1) tablet days #2 thru #5 [id number]-yqrefbdpt-VI [Bromfed DM] 2-30-10 mg/5 mL Syrup 5 ml PO Q6H PRN (Reason: Cough) Qty: 240 0RF ondansetron 4 mg Tablet,Disintegrating 4 mg PO Q8H PRN (Reason: Nausea) Qty: 12 0RF Referrals Follow up/Referrals: Alberto Daley MBBS [Primary Care Provider] - See instructions Clinical Impressions Clinical Impression: Sinusitis, Chest pain Instructions Patient Instructions: DI for Sinusitis, DI for Atypical Chest Pain Discharge ED Provider: Kurt TurkED)Kenn General Adult HPI General Chief complaint: PAIN Stated complaint: chest pain Time Seen by Provider: 12/19/22 00:05 Mode of Arrival: Ambulatory Source of Information: Patient, Significant Other and Medical Record Limitations: No Limitations Description of Symptoms (Recalled from ER Triage Doc. by RN): pt advises he was at work tonight when he felt a pain in the left side of chest that lasted a couple of seconds then went away, after the episode he continues to feel weird all over. Denies any chest pain at this time and denies any SOA. History of Present Illness HPI narrative: acute lt sided chest pain tonight w/o trauma or fever and no recent viral illness - no palpitation or sob - no known ht dis Onset (ago): hour(s) Location: chest Radiation: non-radiation Severity: moderate Quality: stabbing Consistency: now resolved Associated symptoms: denies other symptoms Treatments prior to arrival: none Related Data Home Medications Medication Instructions Recorded Confirmed dextroamphetamine-amphetamine 10 10 mg PO DAILY ADHD 11/12/21 11/12/21 mg tablet topiramate 50 mg tablet 50 mg PO DAILY MIGRAINES 11/12/21 11/12/21 Previous Rx's Medication Instructions Recorded etodolac 200 mg capsule 200 mg PO Q8HP PRN Moderate Pain 11/12/21 #20 caps methocarbamol 500 mg tablet 500 mg PO BID PRN Muscle Spasm #15 11/12/21 tabs azithromycin 250 mg tablet 250 mg PO UD DOSE PK #6 tabs 07/29/22 (Zithromax) [id number]-pxhyrtsstsfrrta-RF 5 ml PO Q6H PRN Cough #240 mL 07/29/22 2 mg-30 mg-10 mg/5 mL oral syrup (Bromfed DM) ondansetron 4 mg disintegrating 4 mg PO Q8H PRN Nausea #12 tabs 07/29/22 tablet cephalexin 500 mg capsule 500 mg PO TID #21 caps 12/19/22 Allergies Allergy/AdvReac Type Severity Reaction Status Date / Time No Known Allergies Allergy Verified 10/15/21 12:43 [facility] Disclaimer: The information contained in this section may have been updated after the patient was seen, as this information can be updated by other users. Social History Smoking Status: Never smoker alcohol intake: never substance use type: denies use current occupational status: employed Travel in the last 8 weeks: None household members: family housing: house ROS Obtained: Yes All systems reviewed & no additional complaints except as documented Physical Exam General General appearance: alert Head Head exam: normocephalic Eye Eye exam: Present PERRL and EOMI ENT ENT exam: Present mucous membranes moist Neck Neck exam: Present trachea midline Respiratory Respiratory exam: Present normal lung sounds bilaterally; Absent respiratory distress Cardiovascular Cardiovascular exam: Present regular rate; Absent systolic murmur or rubs A
[2022-12-19 01:00] VITALS: BP 126/68; PULSE 69; RESP 16; O2SAT 97
--- NOTE | 2022-12-19 01:07 | PC.NURSE ---
rounded on patient and updated that we were waiting on CT reads. Pt had no new needs at this time
[2022-12-19 01:41] VITALS: BP 127/81; PULSE 69; RESP 16; TEMP 36.7; O2SAT 95
== END 2022-12-19 01:43 | disposition home or self-care (01) ==
PROVIDERS: Emergency Provider Emergency Medicine
DX: R07.89 Other chest pain (principal); J01.90 Acute sinusitis, unspecified
CPT/HCPCS: 71046; 71275; 80048; 84484; 85025; 93005; 99285; Q9967

== ENCOUNTER → 2023-01-17 10:43 | Outpatient (CLI) | payer OTHER, BC, SELFPAY ==
--- NOTE | 2023-01-17 10:44 | CA_ITS ---
APPROVED REPORT EXAM: Comprehensive 2D, Doppler, and color-flow Echocardiogram Lean Leader: Latonia Alvarado RT(R) Ht: 5 ft 6 in Wt: 275lbs BSA: 2.29 BP: 130/80 mmHg Indications: CP, palpitations, hx of COVID 2D Dimensions LVOT 2.06 cm (M/F) 1.5-2.5 M-Mode Dimensions RVDd 3.29 cm (0.9-2.6) LA Diam 3.62 cm (1.9-4.0) LVDd 5.34 cm (3.5-5.7) Ao Diam 2.76 cm (2.0-3.7) LVDs 4.05 cm (3.5-5.7) IVSd 0.61 cm (0.6-1.1) PWd 0.79 cm (0.6-1.1) EF (Teich) 47.60% FS 24.20% EDV (Teich) 137.70 mL ESV (Teich) 72.10 mL LV Diastology E Decel Time 163.00 (160-240 msec) E/A Ratio 1.5 MED E' 12.70 (< 7 cm/sec) E'/MED E' Ratio 5.98 (>14) LAT E' 13.50 (<10 cm/sec) E/LAT E' Ratio 5.63 (>14) Mitral Valve MV E Max Harpreet. 76.00 (40-130 cm/s) MV A Velocity 50.00 (40-130 cm/s) E/A Ratio 1.53 MV Decel. Time 163.00 (160-240 ms) MV PHT 48.00 ms Left Ventricle Left atrium is normal size, left ventricle is normal size, estimated ejection fraction 55% with no regional wall motion abnormality, diastolic parameters are within normal range. Right Ventricle Right atrium and right ventricle are normal size and contractility. Aortic Valve Aortic valve is grossly normal there is no aortic stenosis aortic insufficiency. Mitral Valve Mitral valve is grossly normal, there is no significant mitral regurgitation. Tricuspid Valve Tricuspid grossly normal, there is no significant tricuspid regurgitation. Pulmonic Valve Pulmonic valve is poorly visualized. Great Vessels Aortic root is normal size. Inferior vena cava is normal size with normal inspiratory collapse Pericardium No significant pericardial effusion noted. Conclusion 1. Normal left ventricular size, preserved left ventricular systolic function, estimated ejection fraction 55% with no regional wall motion abnormality, diastolic parameters are within normal range. 2. No significant pericardial effusion noted. 3. Inferior vena cava is normal size with normal inspiratory collapse. Electronically signed by : Arron Nolen MD 01/17/2023 13:12:15
== END ==
PROVIDERS: PCP Family Medicine; Visit Provider Family Medicine
DX: R07.9 Chest pain, unspecified (principal)
CPT/HCPCS: 93306

== ENCOUNTER 2023-03-20 13:11 | Emergency (ER) | payer OTHER, SELFPAY ==
[2023-03-20 13:12] VITALS: BP 148/95; PULSE 78; RESP 18; TEMP 37.1; O2SAT 98; BMI 44.6
--- NOTE | 2023-03-20 13:30 | EXP.UTC ---
Discharge Plan Disposition Patient Disposition: Home, Self-Care Condition: Good Prescriptions Prescriptions: New azithromycin [Zithromax] 250 mg tablet 250 mg PO UD DOSE PK Qty: 6 0RF Rx Instructions: Take two (2) tablets today, then one (1) tablet days #2 thru #5 methylprednisolone 4 mg Tablets,Dose Pack 4 mg PO DIRECTED Qty: 21 0RF nwesosgzjcuvaro-hielgppav-HT [Bromfed DM] 2-30-10 mg/5 mL Syrup 5 ml PO Q6H PRN (Reason: Cough) Qty: 240 0RF Referrals Follow up/Referrals: Louisa Zepeda DO [Primary Care Provider] - See instructions Activity Restrictions/Add. Instructions Additional Instructions/Restrictions: Drink plenty of fluids. Take tylenol or ibuprofen for pain or fever. Take the medications as directed. Follow up with your regular doctor. GO TO THE ER FOR ANY WORSENING SYMPTOMS Clinical Impressions Clinical Impression: Sinusitis, Otitis media Stand Alone Forms Stand Alone Forms: Work/School Release Instructions Patient Instructions: Sinusitis, DI for Sinusitis Discharge ED Provider: Sebastian Salgado [facility] General Stated complaint: possible sinus infection,R ear ache Mode of Arrival: Ambulatory Source of Information: Patient Limitations: No Limitations Time Seen by Provider: 03/20/23 13:30 Description of Symptoms (Recalled from Triage Doc. by RN): right ear with sinus pressure HEENT Symptoms (Recalled from RN notes): Yes Resp Symptoms (Recalled from RN notes): No Skin Symptoms (Recalled from RN notes): No MS Symptoms (Recalled from RN notes): No Functional Status (Recalled from RN notes): n/a History of Present Illness Provider Complaint: He states that for the past 4 days he has had right ear pain and sinus congestion. He states that his symptoms are getting worse. Related Data Previous Rx's Medication Instructions Recorded azithromycin 250 mg tablet 250 mg PO UD DOSE PK #6 tabs 03/20/23 (Zithromax) mxswnlullvgyjjh-yevagpfwfhldazd-PM 5 ml PO Q6H PRN Cough #240 mL 03/20/23 2 mg-30 mg-10 mg/5 mL oral syrup (Bromfed DM) methylprednisolone 4 mg tablets in 4 mg PO DIRECTED #21 tabs 03/20/23 a dose pack Allergies Allergy/AdvReac Type Severity Reaction Status Date / Time No Known Allergies Allergy Verified 03/20/23 13:25 Worker's Comp Is this a Worker's Comp case?: No [facility] Disclaimer: The information contained in this section may have been updated after the patient was seen, as this information can be updated by other users. Medical History ADHD COVID-19 Elbow pain Exposure to COVID-19 virus High cholesterol Laceration of leg not thigh, left Muscle spasm Pain, dental Pharyngitis Sinusitis Vitamin D deficiency Surgical History No history of previous surgery S/P tooth extraction Family History Mother Cancer Social History Smoking Status: Never smoker alcohol intake: never substance use type: denies use current occupational status: employed Travel in the last 8 weeks: None household members: family housing: house ROS Obtained: Yes All systems reviewed & no additional complaints except as documented Constitutional Constitutional: Reports poor appetite Eyes Eyes: Reports system reviewed and no additional complaints, except as documented ENT Ears, Nose, Mouth, and Throat: Reports as per HPI Cardiovascular Cardiovascular: Reports system reviewed and no additional complaints, except as documented and Denies chest pain Respiratory Respiratory: Denies shortness of breath, Denies chest congestion, Reports cough, Denies stridor and Denies wheezing Gastrointestinal Gastrointestingal: Reports system reviewed and no additional complaints, except as documented; Denies abdominal pain, diarrhea or vomiting M
[2023-03-20 14:09] VITALS: BP 148/95; PULSE 78; RESP 18; TEMP 37.1; O2SAT 98
== END 2023-03-20 14:08 | disposition home or self-care (01) ==
PROVIDERS: Emergency Provider Nurse Practitioner Family; PCP Family Medicine
DX: J01.90 Acute sinusitis, unspecified (principal); H66.90 Otitis media, unspecified, unspecified ear
CPT/HCPCS: 99212; 99214; G0463

== ENCOUNTER 2023-04-19 19:40 | Emergency (ER) | payer OTHER, SELFPAY ==
[2023-04-19 19:41] VITALS: BP 128/76; PULSE 81; RESP 16; TEMP 36.6; O2SAT 98; BMI 45.1
--- NOTE | 2023-04-19 20:06 | EXP.UTC ---
Discharge Plan Disposition Patient Disposition: Home, Self-Care Condition: Good Prescriptions Prescriptions: New ondansetron 4 mg tablet,disintegrating 4 mg PO Q8H PRN (Reason: nausea and vomiting) Qty: 10 0RF No Action azithromycin [Zithromax] 250 mg tablet 250 mg PO UD DOSE PK Qty: 6 0RF Rx Instructions: Take two (2) tablets today, then one (1) tablet days #2 thru #5 methylprednisolone 4 mg Tablets,Dose Pack 4 mg PO DIRECTED Qty: 21 0RF [id number]-[id number] [Bromfed DM] 2-30-10 mg/5 mL Syrup 5 ml PO Q6H PRN (Reason: Cough) Qty: 240 0RF Referrals Follow up/Referrals: Provider,Referral, MD [Primary Care Provider] - See instructions Activity Restrictions/Add. Instructions Additional Instructions/Restrictions: You may take Tylenol for the next 8 hours if you need something more for your headache Go home and try to sleep off remainder of migraine headache Follow up with your Family Doctor to discuss treatments for your migraines Return if needed Straight to ER if any life threatening symptoms or worse headache of your life Clinical Impressions Clinical Impression: Migraine Stand Alone Forms Stand Alone Forms: Work/School Release Instructions Patient Instructions: DI for Migraine, Ondansetron Discharge ED Provider: Gina Guerrero [facility] General Stated complaint: upset stomach Mode of Arrival: Ambulatory Source of Information: Patient Limitations: No Limitations Time Seen by Provider: 04/19/23 20:06 Description of Symptoms (Recalled from Triage Doc. by RN): Patient states he had a migraine and now its just a headache, however he is the most nauseous he has ever felt. HEENT Symptoms (Recalled from RN notes): No Resp Symptoms (Recalled from RN notes): No Skin Symptoms (Recalled from RN notes): No MS Symptoms (Recalled from RN notes): No Functional Status (Recalled from RN notes): wnl History of Present Illness Provider Complaint: Patient states that he has a hx of migraine headaches and earlier he had one come on that caused him to feel nauseous States that the migraine has eased up now to just a headache but he is still feeling nauseous States that he feels like he needs to vomit but dont States that he hasnt taken anything he just came on here Denies vision changes, denies blurry vision Denies worse headache of his life Related Data Previous Rx's Medication Instructions Recorded azithromycin 250 mg tablet 250 mg PO UD DOSE PK #6 tabs 03/20/23 (Zithromax) sauabbjebpbrrwh-dqhgickuqivooky-IF 5 ml PO Q6H PRN Cough #240 mL 03/20/23 2 mg-30 mg-10 mg/5 mL oral syrup (Bromfed DM) methylprednisolone 4 mg tablets in 4 mg PO DIRECTED #21 tabs 03/20/23 a dose pack ondansetron 4 mg disintegrating 4 mg PO Q8H PRN nausea and 04/19/23 tablet vomiting #10 tabs Allergies Allergy/AdvReac Type Severity Reaction Status Date / Time No Known Allergies Allergy Verified 03/20/23 13:25 Worker's Comp Is this a Worker's Comp case?: No [facility] Disclaimer: The information contained in this section may have been updated after the patient was seen, as this information can be updated by other users. Medical History ADHD COVID-19 Elbow pain Exposure to COVID-19 virus High cholesterol Laceration of leg not thigh, left Muscle spasm Pain, dental Pharyngitis Sinusitis Vitamin D deficiency Surgical History No history of previous surgery S/P tooth extraction Family History Mother Cancer Social History Smoking Status: Never smoker alcohol intake: never substance use type: denies use current occupational status: employed Travel in the last 8 weeks: None household members: family housing: house ROS Obtained: Yes All systems reviewed & no addit
[2023-04-19 20:38] VITALS: BP 128/76; PULSE 81; RESP 16; TEMP 36.6; O2SAT 98
== END 2023-04-19 20:39 | disposition home or self-care (01) ==
PROVIDERS: Emergency Provider Nurse Practitioner
DX: G43.909 Migraine, unspecified, not intractable, without status migrainosus (principal); R11.0 Nausea; E78.5 Hyperlipidemia, unspecified; F90.9 Attention-deficit hyperactivity disorder, unspecified type
CPT/HCPCS: 96372; 99212; 99214; G0463

== ENCOUNTER 2023-08-08 11:53 | Emergency (ER) | payer SELFPAY ==
[2023-08-08 12:50] VITALS: BP 145/83; PULSE 87; RESP 22; TEMP 36.8; O2SAT 100; BMI 43.5
--- NOTE | 2023-08-08 13:06 | EXP.UTC ---
Discharge Plan Disposition Patient Disposition: Home, Self-Care Condition: Good Prescriptions Prescriptions: New amoxicillin 875 mg tablet 875 mg PO BID Qty: 20 0RF fluticasone propionate [Flonase Allergy Relief] 50 mcg/actuation spray,suspension 1 - 2 spray intranasal DAILY Qty: 16 0RF Rx Instructions: administer into each nostril daily ondansetron 4 mg tablet,disintegrating 4 mg PO Q8H PRN (Reason: nausea and vomiting) Qty: 10 0RF Referrals Follow up/Referrals: Provider,Referral, MD [Primary Care Provider] - See instructions Activity Restrictions/Add. Instructions Additional Instructions/Restrictions: *Monitor Temp, Over the counter Motrin or Tylenol as directed/as needed Tylenol every 4 hours and Motrin every 6 hours (as long as your family doctor has told you that you can take it) for fever or pain. and straight to ER if unable to lower temp less than 101.0 after medication given *Warm salt water gargles may help to soothe the throat *Throat Lozenges? *Warm fluids like tea with honey may help to soothe the throat? *Sleep elevated *Humidifier/Vaporizer *Flonase 2 sprays in each nostril daily but be aware that it may take 2-3 days before you notice improvement Follow up with your Family Doctor if you continue to loose weight and having vomiting Your throat swab was sent for culture. Those results are typically sent to your primary care. Be sure to follow up in 2-3 days with your family doctor/primary care physician if no improvement so they can review those result and treat if necessary. If you don?t have a primary care doctor, I recommend you get one but in the mean time, you will have to return to a walk in clinic Follow up IMMEDIATELY for new or worsening symptoms or no Noticeable improvement over the next 48-72 hours. 911 for difficulty breathing or swallowing Clinical Impressions Clinical Impression: Otitis media Qualifiers: Otitis media type: unspecified Laterality: left Qualified Code(s): H66.92 - Otitis media, unspecified, left ear Instructions Patient Instructions: Nausea and Vomiting-Adult, Ondansetron Discharge ED Provider: Gina Guerrero [facility] General Stated complaint: nausea, quickly losing weight Mode of Arrival: Ambulatory Source of Information: Patient Limitations: No Limitations Time Seen by Provider: 08/08/23 13:06 Description of Symptoms (Recalled from Triage Doc. by RN): PATIENT C/O NAUSEA, COLD SWEATS, WEIGHT LOSS, HEADACHE AND FATIGUE X 1 WEEK HEENT Symptoms (Recalled from RN notes): Yes Resp Symptoms (Recalled from RN notes): Yes Skin Symptoms (Recalled from RN notes): No MS Symptoms (Recalled from RN notes): No Functional Status (Recalled from RN notes): WNL History of Present Illness Provider Complaint: Patient states that for the last week he has not been feeling well States that he has been having N/V, pain in his left ear, cold sweats and fatigue States that he has lost some weight where he has been vomiting so he came in to get checked Related Data Previous Rx's Medication Instructions Recorded amoxicillin 875 mg tablet 875 mg PO BID #20 tabs 08/08/23 fluticasone propionate 50 1 - 2 spray intranasal DAILY #16 08/08/23 mcg/actuation nasal grams spray,suspension (Flonase Allergy Relief) ondansetron 4 mg disintegrating 4 mg PO Q8H PRN nausea and 08/08/23 tablet vomiting #10 tabs Allergies Allergy/AdvReac Type Severity Reaction Status Date / Time No Known Allergies Allergy Verified 06/06/23 11:44 Worker's Comp Is this a Worker's Comp case?: No [facility] Disclaimer: The information contained in this section may have been updated after the patient was seen, as this information can be updated by other users. Medical History (Updated 08/08/23 @ 13:31 by Gina Guerrero APRN) ADHD Chest pain COVID-19 Elbow pain Exposure to COVID-19 virus High cholesterol Laceration of leg not thigh, left Muscl
[2023-08-08 13:16] LABS: UTC Influenza A Antigen Negative (Negative); UTC Influenza B Antigen Negative (Negative); UTC Strep Screen (Rapid) Negative (Negative)
[2023-08-08 13:32] VITALS: BP 145/83; PULSE 87; RESP 22; TEMP 36.8; O2SAT 100
== END 2023-08-08 13:35 | disposition home or self-care (01) ==
PROVIDERS: Emergency Provider Nurse Practitioner
DX: H66.92 Otitis media, unspecified, left ear (principal); R11.2 Nausea with vomiting, unspecified; R53.83 Other fatigue; F90.9 Attention-deficit hyperactivity disorder, unspecified type; E55.9 Vitamin D deficiency, unspecified; E78.5 Hyperlipidemia, unspecified
CPT/HCPCS: 87804; 87880; 99212; 99214; G0463

== ENCOUNTER → 2023-10-01 11:38 | Outpatient (CLI) | payer BC, SELFPAY ==
[2023-10-01 12:11] LABS: Hemoglobin A1C 4.7 % (4.0-6.0)
[2023-10-01 13:04] LABS: Alanine Aminotransferase 27 U/L (12-78); Albumin Level 4.7 g/dl (3.5-5.0); Alkaline Phosphatase 70 U/L (38-126); Anion Gap 9.7 mEq/L (5-15); Aspartate Amino Transferase 31 U/L (17-59); Bilirubin,Total 0.8 mg/dl (0.2-1.3); Blood Urea Nitrogen 9 mg/dl (9-20); Calcium 9.3 mg/dl (8.4-10.2); Carbon Dioxide 32 mmol/L (22.0-30.0); Chloride 102 mmol/L (98-107); Chol/HDL Ratio 5.3 (1-3.5); Cholesterol 159 mg/dl (140-200); Estimated Glomerular Filt Rate 104 ml/min (>60); GFR (African American) 125 ML/MIN (>60); Globulin 2.4 g/dL (1.3-3.2); Glucose 90 mg/dl (74-100); HDL Cholesterol 30 mg/dl (40-60); Potassium 3.7 mmoL/L (3.5-5.1); Sodium 140 mmol/L (136-145); Total Protein,Serum 7.1 g/dl (6.3-8.2); Triglycerides 191 mg/dl (30-150); VLDL Cholesterol 38 mg/dL (0-40)
[2023-10-01 13:14] LABS: Basophils # 0.1 K/mm3 (0-0.2); Basophils % 0.9 % (0.1-2.0); Eosinophils # 0.1 K/mm3 (0.0-0.4); Eosinophils % 2.2 % (0.1-12.0); Hematocrit 50.6 % (42.0-52.0); Hemoglobin 17.9 g/dL (14.1-18.0); Lymphocytes # 2.3 K/mm3 (0.7-4.5); Lymphocytes % 37.6 % (10-50); Mean Corpuscular HGB Conc 35.4 g/dL (31.8-35.4); Mean Corpuscular Hemoglobin 32.3 pg (27.0-31.2); Mean Corpuscular Volume 91.4 fl (80-94); Mean Platelet Volume 7.9 fl (7.4-10.4); Monocytes # 0.5 K/mm3 (0.1-1.0); Monocytes % 7.8 % (1.7-9.3); Neutrophils # 3.1 K/mm3 (1.8-7.8); Neutrophils % 51.4 % (37.0-80.0); Platelet Count 228 K/mm3 (142-424); Red Blood Count 5.54 M/mm3 (4.60-6.20); White Blood Count 6.1 K/mm3 (4.8-10.8)
[2023-10-01 13:15] LABS: Direct LDL Cholesterol 94.54 mg/dL (100-129)
[2023-10-01 13:21] LABS: Free T4 (Free Thyroxine) 0.82 ng/dl (0.78-2.19)
[2023-10-01 13:35] LABS: Thyroid Stimulating Hormone 0.65 uIU/mL (0.465-4.68)
== END ==
PROVIDERS: PCP Internal Medicine; Visit Provider Internal Medicine
DX: Z00.00 Encounter for general adult medical examination without abnormal findings (principal); R00.0 Tachycardia, unspecified; Z13.1 Encounter for screening for diabetes mellitus; Z13.29 Encounter for screening for other suspected endocrine disorder; Z13.21 Encounter for screening for nutritional disorder; Z13.220 Encounter for screening for lipoid disorders; E55.9 Vitamin D deficiency, unspecified; E66.01 Morbid (severe) obesity due to excess calories; Z68.41 Body mass index [BMI] 40.0-44.9, adult
CPT/HCPCS: 36415; 80053; 80061; 82306; 83036; 84439; 84443; 85025

== ENCOUNTER 2024-07-09 17:52 | Emergency (ER) | payer SELFPAY ==
[2024-07-09 19:20] VITALS: BP 143/93; PULSE 98; RESP 20; TEMP 37.4; O2SAT 98; BMI 40.1
[2024-07-09 19:33] LABS: UTC Strep Screen (Rapid) Negative (Negative)
--- NOTE | 2024-07-09 19:46 | EXP.UTC ---
Discharge Plan Disposition Patient Disposition: Home, Self-Care Condition: Good Prescriptions Prescriptions: New amoxicillin 875 mg tablet 875 mg PO Q12H Qty: 20 0RF methylprednisolone [Medrol (Ion)] 4 mg tablets,dose pack See Rx Instructions .Route .COMPLEX 6 Days Qty: 21 0RF Rx Instructions: taper pack; fluticasone propionate [Flonase Allergy Relief] 50 mcg/actuation spray,suspension 2 spray intranasal DAILY Qty: 16 0RF Rx Instructions: administer into each nostril daily Referrals Follow up/Referrals: Isaak Goodrich DO [Primary Care Provider] - See instructions Activity Restrictions/Add. Instructions Additional Instructions/Restrictions: *Monitor Temp, Over the counter Motrin or Tylenol as directed/as needed Tylenol every 4 hours and Motrin every 6 hours (as long as your family doctor has told you that you can take it) for fever or pain. and straight to ER if unable to lower temp less than 101.0 after medication given *Warm salt water gargles may help to soothe the throat *Throat Lozenges? *Warm fluids like tea with honey may help to soothe the throat? *Sleep elevated *Humidifier/Vaporizer *Flonase 2 sprays in each nostril daily but be aware that it may take 2-3 days before you notice improvement *Your throat swab was sent for culture. Those results are typically sent to your primary care. Be sure to follow up in 2-3 days with your family doctor/primary care physician if no improvement so they can review those result and treat if necessary. If you don?t have a primary care doctor, I recommend you get one but in the mean time, you will have to return to a walk in clinic Follow up IMMEDIATELY for new or worsening symptoms or no Noticeable improvement over the next 48-72 hours. 911 for difficulty breathing or swallowing Clinical Impressions Clinical Impression: Otitis media Instructions Patient Instructions: Middle Ear Infection, Ear Infections (Alternative Therapy) Print Language Print Language: [place] Discharge ED Provider: Gina Guerrero [facility] HPI General Stated complaint: Earache,sore throat Mode of Arrival: Ambulatory Source of Information: Patient Limitations: No Limitations Time Seen by Provider: 07/09/24 19:46 Description of Symptoms (Recalled from Triage Doc. by RN): PATIENT C/O LEFT EAR PAIN, SORE/SCRATCHY THROAT, SINUS DRAINAGE, AND CONGESTION X 2 DAYS HEENT Symptoms (Recalled from RN notes): Yes Resp Symptoms (Recalled from RN notes): No Skin Symptoms (Recalled from RN notes): No MS Symptoms (Recalled from RN notes): No Functional Status (Recalled from RN notes): WNL History of Present Illness Provider Complaint: Patient states that he has been having pain in his left ear for over a week and sinus congestion, sore scratchy throat for the last couple of days States today he was still not feeling well so he came in to get it checked Related Data Previous Rx's ?Medication ?Instructions ?Recorded amoxicillin 875 mg tablet 875 mg PO Q12H #20 tabs 07/09/24 fluticasone propionate 50 2 spray intranasal DAILY #16 grams 07/09/24 mcg/actuation nasal spray,suspension (Flonase Allergy Relief) methylprednisolone 4 mg tablets in See Rx Instructions .Route 07/09/24 a dose pack (Medrol (Ion)) .COMPLEX 6 days #21 tabs Allergies Allergy/AdvReac Type Severity Reaction Status Date / Time No Known Allergies Allergy Verified 09/28/23 13:00 Worker's Comp Is this a Worker's Comp case?: No [facility] Disclaimer: The information contained in this section may have been updated after the patient was seen, as this information can be updated by other users. Medical History ADHD Established with T[facility] P[facility] with [facility] in [place] Chest pain COVID-19 Elbow pain Exposure to COVID-19 virus High cholesterol Laceration of leg not thigh, left Muscle spasm Otitis media Pain, dental Pharyngitis Rash and nonspecific skin eruption Sinusitis Sinusitis Vitamin D deficiency Surgical History No history of previous surgery S/P tooth extraction Family History Mother Cancer thyroid Social History (Updated 09/28/23 @ 13:02 by Daphney Elizalde CMA) Smoking Status: Never smoker alcohol intake: current alcohol intake frequency: a few times a month substance use type: denies use current occupational status: employed Travel in the last 8 weeks: None household members: family housing: house ROS Obtained: Yes All systems reviewed & no additional complaints except as documented and Yes Systems reviewed as appropriate & no additional complaints except as documented Constitutional Constitutional: Reports system reviewed and no additional complaints, except as documented and Reports as per HPI ENT Ears, Nose, Mouth, and Throat: Reports system reviewed and no additional complaints, except as documented, Reports as per HPI, Reports otalgia, Reports sinus pain, Reports sinus pressure and Reports sore throat Cardiovascular Cardiovascular: Reports system reviewed and no additional complaints, except as documented and Reports as per HPI Respiratory Respiratory: Reports system reviewed and no additional complaints, except as documented and Reports as per HPI Physical Exam General General appearance: alert and in no apparent distress ENT ENT exam: Present mucous membranes moist Expanded ENT Exam TM/Canal exam: Left TM: erythema and Bilateral TM: bulging Throat exam: Present other (PND noted) Respiratory Respiratory exam: Present normal lung sounds bilaterally; Absent respiratory distress or wheezes Cardiovascular Cardiovascular exam: Present regular rate, normal rhythm and normal heart sounds Abdominal Exam Abdominal exam: Present soft and normal bowel sounds; Absent distention or tenderness Neurological Exam Neurological exam: Present alert, oriented X3 and normal gait Medical Decision Making Pipo Inquiry Pt receiving controlled substance: No Pipo was queried for this patient: No Vital Signs: 07/09/24 19:20 Temperature 99.4 F Temperature Source Oral Pulse Rate [Left Brachial] 98 H Respiratory Rate 20 Blood Pressure [Left Arm] 143/93 H Blood Pressure Mean [Left Arm] 109 Blood Pressure Source [Left Arm] Automatic Cuff Blood Pressure Position [Left Arm] Sitting 02 Sat by Pulse Oximetry 98 Oxygen Delivery Method Room Air Lab Data Lab results reviewed: Yes I reviewed the patient's lab results. Lab Results 07/09/24 19:30: Strep Scn Rapid Clinic Negative Orders (Tests/Meds): ORDERS Category Date Time Status Strep Screen Confirmation Stat Micro 07/09/24 19:30 Received
[2024-07-09 19:55] VITALS: BP 143/93; PULSE 98; RESP 20; TEMP 37.4; O2SAT 98
== END 2024-07-09 19:59 | disposition home or self-care (01) ==
PROVIDERS: Emergency Provider Nurse Practitioner; PCP Internal Medicine
DX: H66.92 Otitis media, unspecified, left ear (principal); R07.0 Pain in throat; R09.81 Nasal congestion
CPT/HCPCS: 87880; 99212; 99214; G0463

== ENCOUNTER 2024-10-30 21:35 | Emergency (ER) | payer BC, SELFPAY ==
[2024-10-30 21:35] VITALS: BP 145/91; PULSE 109; RESP 18; TEMP 36.6; O2SAT 95; BMI 43.0
--- NOTE | 2024-10-30 21:38 | XR_ITS ---
PROCEDURE INFORMATION: Exam: XR Chest Exam date and time: 10/30/2024 9:42 PM Age: 23 years old Clinical indication: Other: SOB cp presyncope TECHNIQUE: Imaging protocol: Radiologic exam of the chest. Views: 1 view. COMPARISON: CT ANGIO CHEST PE PROTOCOL 12/19/2022 12:50 AM FINDINGS: Lungs: Bilateral hypoexpanded lung rosales noted. No focal consolidation. Calcified nodule noted right upper lobe. This is unchanged from patient's prior chest CT. Pleural spaces: Unremarkable. No pleural effusion. No pneumothorax. Heart/Mediastinum: Unremarkable. No cardiomegaly. Bones/joints: Unremarkable. IMPRESSION: 1. Bilateral low lung volumes. This may reflect inadequate inspiration. No focal airspace disease. 2. Stable calcified right upper lobe nodule
--- NOTE | 2024-10-30 21:40 | ED_ITS ---
Discharge Plan Disposition Patient Disposition: Home, Self-Care Condition: Good Chief Complaint: Chest Pain Prescriptions Prescriptions: No Action amoxicillin 875 mg tablet 875 mg PO Q12H Qty: 20 0RF methylprednisolone [Medrol (Ion)] 4 mg tablets,dose pack See Rx Instructions .Route .COMPLEX 6 Days Qty: 21 0RF Rx Instructions: taper pack; fluticasone propionate [Flonase Allergy Relief] 50 mcg/actuation spray,suspension 2 spray intranasal DAILY Qty: 16 0RF Rx Instructions: administer into each nostril daily Referrals Follow up/Referrals: Isaak Goodrich DO [Primary Care Provider] - See instructions Isaak Lyn MD [Staff Physician] - See instructions (near syncope, hx slightly abnormal ECG - stable from prior, reassuring ED workup) Activity Restrictions/Add. Instructions Additional Instructions/Restrictions: You were evaluated in the ER and are appropriate for discharge at this time. Continue taking home medications as prescribed. Follow-up with cardiology, you have been referred to their office for this purpose for reevaluation. Also make an appointment with your primary care doctor for reevaluation. Return to the ER with new, worsening, or otherwise concerning symptoms. Clinical Impressions Clinical Impression: Chest pain, Tachycardia, Near syncope Print Language Print Language: Occitan Discharge ED Provider: Johnnie Meyer [facility] <Johnnie Meyer MD - Last Filed: 10/30/24 22:54> General Chief Complaint: Chest Pain Stated Complaint: chest pain Time Seen by Provider: 10/30/24 21:37 Mode of Arrival: EMS Source of Information: Patient and EMS Limitations: No Limitations Description of Symptoms (Recalled from ER Triage Doc. by RN): Patient states he was playing video games tonight when he experienced a tight, squeezing pain in his chest. States he took delta 8 around 2pm. Has had previous instances of the same symptoms but anything cardiac was ruled out. History of Present Illness HPI narrative: Please note that above description of symptoms, in this electronic medical record under categorization of recalled from ER triage doctor by RN are reflective of an initial nursing assessment, however, is not reflective of my full history and physical exam that was personally taken and clarified. Consequentially, this preceding description of symptoms, which may include the patient's categorized chief complaint in the EMR, do not reflect my personal clinical impression, and the ultimate description of history of present illness and patient stated complaints should be deferred to this section of the note. Unless stated otherwise or congruent with this section of the note, additional signs, symptoms, or incongruence should be interpreted as inaccurate with my clinical impression. Related Data Previous Rx's ?Medication ?Instructions ?Recorded amoxicillin 875 mg tablet 875 mg PO Q12H #20 tabs 07/09/24 fluticasone propionate 50 2 spray intranasal DAILY #16 grams 07/09/24 mcg/actuation nasal spray,suspension (Flonase Allergy Relief) methylprednisolone 4 mg tablets in See Rx Instructions .Route 07/09/24 a dose pack (Medrol (Ion)) .COMPLEX 6 days #21 tabs Allergies Allergy/AdvReac Type Severity Reaction Status Date / Time No Known Allergies Allergy Verified 09/28/23 13:00 [facility] <Johnnie Meyer MD - Last Filed: 10/30/24 22:54> [facility] Disclaimer: The information contained in this section may have been updated after the patient was seen, as this information can be updated by other users. Medical History ADHD Established with [facility] with [facility] in [place] Chest pain COVID-19 Elbow pain Exposure to COVID-19 virus High cholesterol Laceration of leg not thigh, left Muscle spasm Otitis media Pain, dental Pharyngitis Rash and nonspecific skin eruption Sinusitis Sinusitis Vitamin D deficiency Surgical History No history of previous surgery S/P tooth extraction Family History Mother Cancer thyroid Social History (Updated 09/28/23 @ 13:02 by Daphney Elizalde CMA) Smoking Status: Never smoker alcohol intake: current alcohol intake frequency: a few times a month substance use type: denies use current occupational status: employed Travel in the last 8 weeks: None household members: family housing: house Have you lived/traveled outside US in past 30 days?: No Contact w/someone who lives/traveled outside US past 30 days?: No Exposure to someone with infectious disease in past 14 days?: No Do you have a fever (greater than 100.4 F or 38 C)?: No Have you tested positive for COVID-19: No Exposed to someone with COVID-19 in past 14 days?: No Do you have a sore throat?: No Do you have a cough?: Yes Do you have any weakness?: No Do you have any diarrhea?: No Are you experiencing any unusual bleeding?: No Do you have any muscle aches/pain?: No Do you have any abdominal pain?: No Are you experiencing loss of taste or smell?: No Other Medical History Have you received the Flu Vaccine for this season: No Have you received the Pneumonia Vaccine: No <Johnnie Meyer MD - Last Filed: 10/30/24 22:54> ROS Obtained: Yes All systems reviewed & no additional complaints except as documented Physical Exam <Johnnie Meyer MD - Last Filed: 10/30/24 22:54> General General appearance: alert, in no apparent distress, anxious and obese Neck Neck exam: Present trachea midline Chest Chest inspection: Present normal inspection and symmetric chest wall rise Respiratory Respiratory exam: Present normal lung sounds bilaterally; Absent respiratory distress, wheezes, stridor, accessory muscle use or prolonged expiratory phase Cardiovascular Cardiovascular exam: Present normal rhythm, tachycardia and other (Pulses equal and symmetric in upper and lower extremities) Extremities Exam Extremities exam: Absent edema Neurological Exam Neurological exam: Present alert, oriented X3 and CN II-XII intact Skin Skin exam: Present warm and dry; Absent cyanosis, diaphoresis or pallor HEART Score <Johnnie Meyer MD - Last Filed: 10/30/24 22:54> HEART Score HEART Score assessment performed?: Yes HEART Score: 3 <Russell Kelly MD - Last Filed: 10/31/24 01:20> HEART Score History (anamnesis): Slightly suspicious ECG: Non-specific disturbance Age: <45 years Risk factors: 1-2 risk factors Troponin: </= normal limit HEART Score: 2 Procedures <Johnnie Meyer MD - Last Filed: 10/30/24 22:54> Limited Ultrasound Indication:: Limited cardiac ultrasound Indication: Persistent tach cardia, chest pain Identified cardiac views: -Cardiac parasternal long axis -Cardiac parasternal short axis -Cardiac apical four-chamber Findings: -Cardiac activity present -Gross wall motion normal -Pericardial effusion absent -Right heart strain absent Impression: -Tachycardic without any other objective abnormalities. No evidence of right heart strain, effusion, or other abnormalities. Grossly normal ejection fraction Images were saved to permanent archive The study was technically adequate CPT: 56111 This study was performed by me, and I personally interpreted all images/videos. Based on my clinical judgement, these images were adequate and did not necessitate further imaging Critical Care <Johnnie Meyer MD - Last Filed: 10/30/24 22:54> Critical Care Time Critical Care Time: No Medical Decision Making <Johnnie Meyer MD - Last Filed: 10/30/24 22:54> Medical Records Medical records reviewed: Yes I reviewed the patient's medical records. Pipo Inquiry Pt receiving controlled substance: No Pipo was queried for this patient: No Vital Signs Vital Signs: 10/30/24 21:35 10/30/24 21:45 10/30/24 22:00 Temperature 97.9 F Temperature Source Oral Pulse Rate 104 H 93 H Pulse Rate [Right Radial] 109 H Respiratory Rate 18 16 Blood Pressure 125/71 Blood Pressure [Right Arm] 145/91 H Blood Pressure Mean 89 Blood Pressure Mean [Right Arm] 109 Blood Pressure Source [Right Arm] Automatic Cuff Blood Pressure Position [Right Arm] Supine 02 Sat by Pulse Oximetry 95 92 L Oxygen Delivery Method Room Air 10/30/24 22:30 10/30/24 23:01 10/30/24 23:30 Temperature Temperature Source Pulse Rate 88 85 84 Pulse Rate [Right Radial] Respiratory Rate 14 21 15 Blood Pressure 127/89 111/66 128/74 Blood Pressure [Right Arm] Blood Pressure Mean 97 81 86 Blood Pressure Mean [Right Arm] Blood Pressure Source [Right Arm] Blood Pressure Position [Right Arm] 02 Sat by Pulse Oximetry 97 95 95 Oxygen Delivery Method 10/31/24 00:01 10/31/24 00:22 10/31/24 00:30 Temperature Temperature Source Pulse Rate 78 68 66 Pulse Rate [Right Radial] Respiratory Rate 17 18 17 Blood Pressure 115/67 115/67 107/55 L Blood Pressure [Right Arm] Blood Pressure Mean 79 72 Blood Pressure Mean [Right Arm] Blood Pressure Source [Right Arm] Blood Pressure Position [Right Arm] 02 Sat by Pulse Oximetry 97 97 98 Oxygen Delivery Method Room Air Lab Data Labs: Lab Results 10/30/24 21:31: WBC 10.1, RBC 5.52, Hgb 17.7, Hct 48.0, MCV 87.0, MCH 32.1 H, M CHC 36.9 H, RDW 11.8, Plt Count 231, MPV 9.2, Neut % (Auto) 53.4, Lymph % (Auto) 35.9, [place] % (Auto) 8.2, Eos % (Auto) 1.3, Baso % (Auto) 0.7, Neut # (Auto) 5.4, Lymph # (Auto) 3.6, [place] # (Auto) 0.8, Eos # (Auto) 0.1, Baso # (Auto) 0.1, PT 10.4, INR 0.92, APTT 23.3, D-Dimer 0.71 H, Sodium 140, Potassium 3.3 L, Chloride 100, Carbon Dioxide 28, Anion Gap 15.3 H, BUN 18, Creatinine 1.00, Estimated Creat Clear 102, Estimated GFR 91, Est GFR ( Amer) 110, Glucose 112 H, Calcium 9.7, Magnesium 2.2, Total Bilirubin 0.9, AST 41, ALT 35, Alkaline Phosphatase 88, Troponin I < 0.01, NT-Pro-B Natriuret Pep < 20.0, Total Protein 7.1, Albumin 4.6, Globulin 2.5, Albumin/Globulin Ratio 1.8, TSH 1.75, Thyroxine (T4) 8.4, HIV Ag/Ab Combo Qual Negative 10/30/24 21:41: VBG pH 7.41, VBG pCO2 37.4, VBG pO2 41.1 H, VBG HCO3 23.1, VBG Total CO2 24.2, VBG O2 Saturation 79.8 H, VBG Base Excess -1.6, VBG Lactic Acid 2.1 H 10/31/24 00:12: Troponin I < 0.01 10/30/24 21:31 10/30/24 21:31 Response Orders (Tests/Meds): ED MEDICATIONS Discontinued Medications Generic Name Dose Route Start Last Admin Trade Name Alokq PRN Reason Stop Dose Admin Hydroxyzine Pamoate 50 mg 10/30/24 21:37 10/30/24 21:43 Hydroxyzine Pamoate 25mg Capsule PO 10/30/24 21:38 50 mg ONCE ONE Administration Sodium Chloride 1,000 mls @ 999 mls/hr 10/30/24 23:17 10/30/24 23:21 Sod Chlor 0.9% 1000ml Bag IV 10/31/24 00:17 999 mls/hr .Q1H1M ONE Administration Iopamidol 70 ml 10/30/24 22:49 10/30/24 22:50 Iopamidol-370 (76%);100ml Bottle IV 10/30/24 22:50 70 ml ONCE ONE Administration Potassium Chloride 60 meq 10/30/24 22:08 10/30/24 22:19 Potassium Chloride 20meq Tab PO 10/30/24 22:09 60 meq ONCE ONE Administration Sodium Chloride 10 ml 10/30/24 22:49 10/30/24 22:50 Sodium Chloride 0.9% 10ml Syr (Rad Only) IV 10/30/24 22:50 10 ml ONCE ONE Administration Sodium Chloride 50 ml 10/30/24 22:49 10/30/24 22:49 0.9 % Sodium Chloride 50 Ml Vial IV 10/30/24 22:50 50 ml ONCE ONE Administration ORDERS Category Date Time Status CT angio chest PE protocol Stat Cat Scan 10/30/24 22:25 Completed POCUS Point of Care (ER Only) Stat Exams 10/30/24 21:38 Ordered XR chest portable Stat Exams 10/30/24 21:38 Completed Complete Blood Count Auto Diff Stat Lab 10/30/24 21:31 Completed Comprehensive Metabolic Panel Stat Lab 10/30/24 21:31 Completed D-Dimer Stat Lab 10/30/24 21:31 Completed HIV Combo Stat Lab 10/30/24 21:31 Completed Hep C Ab with Reflex to RNA Stat Lab 10/30/24 21:31 Received Magnesium Stat Lab 10/30/24 21:31 Completed NT Pro Brain Natriuretic Pep. Stat Lab 10/30/24 21:31 Completed PT INR [Prothrombin Time INR] Stat Lab 10/30/24 21:31 Completed PTT [Activated Partial Thrombo Time] Stat Lab 10/30/24 21:31 Completed T4 (Thyroxine) Stat Lab 10/30/24 21:31 Completed TSH [Thyroid Stimulating Hormone] Stat Lab 10/30/24 21:31 Completed Troponin I Q3H Lab 10/31/24 00:12 Completed Troponin I Q3H Lab 10/31/24 03:45 Ordered Troponin I Stat Lab 10/30/24 21:31 Completed VBG [Venous Blood Gas] Stat RT 10/30/24 21:41 Completed MDM Narrative Medical Decision Narrative: 23-year-old male history of anxiety, palpitations presenting with chest pain. Patient states that earlier today about 7 hours prior to this visit, he took a delta 8 THC gummy. He states that it is not anymore or less than he usually takes, not a different brand, etc. Was sitting down playing video games shortly before arrival when he started having chest pains. He states that it started with chest pain that was substernal, did not radiate and made him feel like my blood was running out of me. This was followed by his bilateral hands getting tingly and drawing up. States that he felt like he was going to pass out, never actually did. EMS was contacted and picked up patient. They state that he had 1 episode of diaphoresis, pallor and presyncope with them. Patient states this was the same as what he was having at home prior to calling EMS. On arrival states that he feels better, has not had any episodes and currently feels like the chest pain is a lot looser. No current complaints. History was obtained via conversation with patient and EMS. On arrival, patient hemodynamically stable, alert, oriented x4, appropriate, GCS 15, moving all extremities spontaneously, pupils equal and reactive to light. Full physical exam performed and significant for anxious appearing male no acute distress. Lungs are clear, cardiac exam without murmurs gallops or rubs. Patient grossly neurologically intact. He is tachycardic 100 110 bpm. Differential includes anxiety, panic, ACS, NC, pericarditis, PE, pneumothorax, arrhythmia, metabolic or endocrinologic abnormality among others. Patient was given 324 aspirin with EMS, Zofran with EMS, 50 mg of Vistaril here for symptomatic management and correction of underlying abnormalities. Patient placed on continuous cardiac monitoring and continuous pulse ox with initial blood pressure 145/91, heart rate 9, saturation 95% on room air breathing 18 times per minute. Independent interpretation of EKG shows sinus rhythm 76 bpm with [place] interval 154, QRS 120, QTc 394. Patient has incomplete right bundle branch block morphology with what may be right heart strain pattern S1Q3T3. Normal axis. Workup independently interpreted and significant for nonactionable CBC. VBG nonactionable, lactate mildly elevated. Patient mildly hypokalemic, this was repleted p.o. On independent interpretation of imaging, no acute, intervenable intrathoracic process. Given EKG findings and persistent tachycardia, bedside ultrasound was performed. Patient has no evidence of septal bowing, right heart strain, effusion or gross abnormalities. On reevaluation, patient states that he is still feeling well, however his heart rate keeps spiking up, although he is not doing anything at rest. Given elevated D-dimer, CT PE was ordered. On independent interpretation, I do not appreciate any large pulmonary embolus, but contrast bolus timing is imperfect. Prior to definitive interpretation and disposition, care handed off to oncoming physician. Assistant Press Operator disclaimer Much of this encounter note is an electronic air brake worker spoken language to printed text. Electronic air brake worker of the spoken language may permit errors. Although I have reviewed the note, some errors may still exist. <Russell Kelly MD - Last Filed: 10/31/24 01:20> Vital Signs Vital Signs: 10/30/24 21:35 10/30/24 21:45 10/30/24 22:00 Temperature 97.9 F Temperature Source Oral Pulse Rate 104 H 93 H Pulse Rate [Right Radial] 109 H Respiratory Rate 18 16 Blood Pressure 125/71 Blood Pressure [Right Arm] 145/91 H Blood Pressure Mean 89 Blood Pressure Mean [Right Arm] 109 Blood Pressure Source [Right Arm] Automatic Cuff Blood Pressure Position [Right Arm] Supine 02 Sat by Pulse Oximetry 95 92 L Oxygen Delivery Method Room Air 10/30/24 22:30 10/30/24 23:01 10/30/24 23:30 Temperature Temperature Source Pulse Rate 88 85 84 Pulse Rate [Right Radial] Respiratory Rate 14 21 15 Blood Pressure 127/89 111/66 128/74 Blood Pressure [Right Arm] Blood Pressure Mean 97 81 86 Blood Pressure Mean [Right Arm] Blood Pressure Source [Right Arm] Blood Pressure Position [Right Arm] 02 Sat by Pulse Oximetry 97 95 95 Oxygen Delivery Method 10/31/24 00:01 10/31/24 00:22 10/31/24 00:30 Temperature Temperature Source Pulse Rate 78 68 66 Pulse Rate [Right Radial] Respiratory Rate 17 18 17 Blood Pressure 115/67 115/67 107/55 L Blood Pressure [Right Arm] Blood Pressure Mean 79 72 Blood Pressure Mean [Right Arm] Blood Pressure Source [Right Arm] Blood Pressure Position [Right Arm] 02 Sat by Pulse Oximetry 97 97 98 Oxygen Delivery Method Room Air Lab Data Labs: Lab Results 10/30/24 21:31: WBC 10.1, RBC 5.52, Hgb 17.7, Hct 48.0, MCV 87.0, MCH 32.1 H, M CHC 36.9 H, RDW 11.8, Plt Count 231, MPV 9.2, Neut % (Auto) 53.4, Lymph % (Auto) 35.9, [place] % (Auto) 8.2, Eos % (Auto) 1.3, Baso % (Auto) 0.7, Neut # (Auto) 5.4, Lymph # (Auto) 3.6, [place] # (Auto) 0.8, Eos # (Auto) 0.1, Baso # (Auto) 0.1, PT 10.4, INR 0.92, APTT 23.3, D-Dimer 0.71 H, Sodium 140, Potassium 3.3 L, Chloride 100, Carbon Dioxide 28, Anion Gap 15.3 H, BUN 18, Creatinine 1.00, Estimated Creat Clear 102, Estimated GFR 91, Est GFR ( Amer) 110, Glucose 112 H, Calcium 9.7, Magnesium 2.2, Total Bilirubin 0.9, AST 41, ALT 35, Alkaline Phosphatase 88, Troponin I < 0.01, NT-Pro-B Natriuret Pep < 20.0, Total Protein 7.1, Albumin 4.6, Globulin 2.5, Albumin/Globulin Ratio 1.8, TSH 1.75, Thyroxine (T4) 8.4, HIV Ag/Ab Combo Qual Negative 10/30/24 21:41: VBG pH 7.41, VBG pCO2 37.4, VBG pO2 41.1 H, VBG HCO3 23.1, VBG Total CO2 24.2, VBG O2 Saturation 79.8 H, VBG Base Excess -1.6, VBG Lactic Acid 2.1 H 10/31/24 00:12: Troponin I < 0.01 Response Orders (Tests/Meds): ED MEDICATIONS Discontinued Medications Generic Name Dose Route Start Last Admin Trade Name Freq PRN Reason Stop Dose Admin Hydroxyzine Pamoate 50 mg 10/30/24 21:37 10/30/24 21:43 Hydroxyzine Pamoate 25mg Capsule PO 10/30/24 21:38 50 mg ONCE ONE Administration Sodium Chloride 1,000 mls @ 999 mls/hr 10/30/24 23:17 10/30/24 23:21 Sod Chlor 0.9% 1000ml Bag IV 10/31/24 00:17 999 mls/hr .Q1H1M ONE Administration Iopamidol 70 ml 10/30/24 22:49 10/30/24 22:50 Iopamidol-370 (76%);100ml Bottle IV 10/30/24 22:50 70 ml ONCE ONE Administration Potassium Chloride 60 meq 10/30/24 22:08 10/30/24 22:19 Potassium Chloride 20meq Tab PO 10/30/24 22:09 60 meq ONCE ONE Administration Sodium Chloride 10 ml 10/30/24 22:49 10/30/24 22:50 Sodium Chloride 0.9% 10ml Syr (Rad Only) IV 10/30/24 22:50 10 ml ONCE ONE Administration Sodium Chloride 50 ml 10/30/24 22:49 10/30/24 22:49 0.9 % Sodium Chloride 50 Ml Vial IV 10/30/24 22:50 50 ml ONCE ONE Administration ORDERS Category Date Time Status CT angio chest PE protocol Stat Cat Scan 10/30/24 22:25 Completed POCUS Point of Care (ER Only) Stat Exams 10/30/24 21:38 Ordered XR chest portable Stat Exams 10/30/24 21:38 Completed Complete Blood Count Auto Diff Stat Lab 10/30/24 21:31 Completed Comprehensive Metabolic Panel Stat Lab 10/30/24 21:31 Completed D-Dimer Stat Lab 10/30/24 21:31 Completed HIV Combo Stat Lab 10/30/24 21:31 Completed Hep C Ab with Reflex to RNA Stat Lab 10/30/24 21:31 Received Magnesium Stat Lab 10/30/24 21:31 Completed NT Pro Brain Natriuretic Pep. Stat Lab 10/30/24 21:31 Completed PT INR [Prothrombin Time INR] Stat Lab 10/30/24 21:31 Completed PTT [Activated Partial Thrombo Time] Stat Lab 10/30/24 21:31 Completed T4 (Thyroxine) Stat Lab 10/30/24 21:31 Completed TSH [Thyroid Stimulating Hormone] Stat Lab 10/30/24 21:31 Completed Troponin I Q3H Lab 10/31/24 00:12 Completed Troponin I Q3H Lab 10/31/24 03:45 Ordered Troponin I Stat Lab 10/30/24 21:31 Completed VBG [Venous Blood Gas] Stat RT 10/30/24 21:41 Completed MDM Narrative Medical Decision Narrative: 23-year-old male history of anxiety, palpitations presenting with chest pain. Patient states that earlier today about 7 hours prior to this visit, he took a delta 8 THC gummy. He states that it is not anymore or less than he usually takes, not a different brand, etc. Was sitting down playing video games shortly before arrival when he started having chest pains. He states that it started with chest pain that was substernal, did not radiate and made him feel like my blood was running out of me. This was followed by his bilateral hands getting tingly and drawing up. States that he felt like he was going to pass out, never actually did. EMS was contacted and picked up patient. They state that he had 1 episode of diaphoresis, pallor and presyncope with them. Patient states this was the same as what he was having at home prior to calling EMS. On arrival states that he feels better, has not had any episodes and currently feels like the chest pain is a lot looser. No current complaints. History was obtained via conversation with patient and EMS. On arrival, patient hemodynamically stable, alert, oriented x4, appropriate, GCS 15, moving all extremities spontaneously, pupils equal and reactive to light. Full physical exam performed and significant for anxious appearing male no acute distress. Lungs are clear, cardiac exam without murmurs gallops or rubs. Patient grossly neurologically intact. He is tachycardic 100 110 bpm. Differential includes anxiety, panic, ACS, NC, pericarditis, PE, pneumothorax, arrhythmia, metabolic or endocrinologic abnormality among others. Patient was given 324 aspirin with EMS, Zofran with EMS, 50 mg of Vistaril here for symptomatic management and correction of underlying abnormalities. Patient placed on continuous cardiac monitoring and continuous pulse ox with initial blood pressure 145/91, heart rate 9, saturation 95% on room air breathing 18 times per minute. Independent interpretation of EKG shows sinus rhythm 76 bpm with [place] interval 154, QRS 120, QTc 394. Patient has incomplete right bundle branch block morphology with what may be right heart strain pattern S1Q3T3. Normal axis. Workup independently interpreted and significant for nonactionable CBC. VBG nonactionable, lactate mildly elevated. Patient mildly hypokalemic, this was repleted p.o. On independent interpretation of imaging, no acute, intervenable intrathoracic process. Given EKG findings and persistent tachycardia, bedside ultrasound was performed. Patient has no evidence of septal bowing, right heart strain, effusion or gross abnormalities. On reevaluation, patient states that he is still feeling well, however his heart rate keeps spiking up, although he is not doing anything at rest. Given elevated D-dimer, CT PE was ordered. On independent interpretation, I do not appreciate any large pulmonary embolus, but contrast bolus timing is imperfect. Prior to definitive interpretation and disposition, care handed off to oncoming physician. Assistant Press Operator disclaimer Much of this encounter note is an electronic air brake worker spoken language to printed text. Electronic air brake worker of the spoken language may permit errors. Although I have reviewed the note, some errors may still exist. Kelly: Upon my assumption of care patient is stable, resting comfortably, he reports no discomfort at this time. He states he has not had symptoms like this in the past. Mom reports similar symptoms when she had panic attacks, patient does not report any his anxiety or history of panic attacks, he states the game he was playing at the time was not particularly stressful. He does not report being under any significant stress. I agree with the assessment and plan from Dr. Meyer. Labs are generally reassuring aside from a mildly elevated D-dimer for which patient received CTA PE. Patient had slightly elevated lactic on VBG. He is receiving IV fluids. This was personally interpreted and I do not appreciate obvious large PE, radiology read pending. Repeat troponin also pending. Review of previous records demonstrates patient has never seen cardiology within our system though he has previously been evaluated and found to have sinus bradycardia, tachycardia. I reviewed previous ECG from 2022 and patient also had S1Q3T3 pattern at that time with sinus tachycardia, rate 117, right axis deviation, no STEMI, ECG appears very similar to the one performed today. CTA PE was reviewed, radiology read reports no acute abnormality. Patient does have calcified right pulmonary granuloma with scattered cysts in the superior right lower lobe without consolidation or mass, no PE. Review of previous records demonstrates that these findings are consistent with prior. Patient was informed of these incidental findings. Patient was placed into ED observation at 2355 for serial troponins to rule out evolving NC and preclude unnecessary admission. He remains asymptomatic at this time. He was on the cardiac cath lab technologist and frequently reassessed during his time in ED observation. Repeat troponin undetectably low at less than 0.01. Patient was then ambulated throughout the ER to see if his symptoms returned with ambulation or could be provoked. He remained hemodynamically stable with good oxygen saturation on room air and vitals were stable with ambulation. At this time I believe he is appropriate for discharge. Due to his symptoms and history of slightly abnormal ECGs, I did refer him to cardiology for outpatient follow-up. Patient was given instructions on symptomatic management, follow up instructions, and return precautions for the emergency department. Patient indicated understanding and was discharged in stable condition. Total time in ED observation: 1 hour 24 minutes I had [id number] discussion with the patient and family at bedside when provided discharge instructions. Total time involved in discharging this patient was less than 30 minutes.
[2024-10-30] MEDS: hydrOXYzine pamoate 25MG CAPSULE 50 MG PO (21:43)
[2024-10-30 21:45] VITALS: PULSE 104
--- NOTE | 2024-10-30 21:46 | ECG_ITS ---
APPROVED REPORT Exam: Resting ECG HR:76 bpm ECG Measurements Heart Rate 76 AXES CO 154 P 22 QRSd 120 QRS 10 QT 363 T -2 QTc 394 Conclusion SINUS RHYTHM POSSIBLE RIGHT VENTRICULAR CONDUCTION DELAY [RSR (QR) IN V1/V2] MINIMAL VOLTAGE CRITERIA FOR LVH, CONSIDER NORMAL VARIANT [MEETS CRITERIA IN ONE OF: R(aVL), S(V1), R(V5), R(V5/V6)+S(V1)] S1Q3T3 pattern, possible right heart strain No STEMI Electronically signed by : JV SWANSON, 10/31/2024 06:08:53
[2024-10-30 21:49] LABS: Basophils # 0.1 K/mm3 (0-0.2); Basophils % 0.7 % (0.1-2.0); Eosinophils # 0.1 K/mm3 (0.0-0.4); Eosinophils % 1.3 % (0.1-12.0); Hemoglobin 17.7 g/dL (14.1-18.0); Lymphocytes # 3.6 K/mm3 (0.7-4.5); Lymphocytes % 35.9 % (10-50); Mean Corpuscular HGB Conc 36.9 g/dL (31.8-35.4); Mean Corpuscular Hemoglobin 32.1 pg (27.0-31.2); Mean Platelet Volume 9.2 fl (7.4-10.4); Monocytes # 0.8 K/mm3 (0.1-1.0); Monocytes % 8.2 % (1.7-9.3); Neutrophils # 5.4 K/mm3 (1.8-7.8); Neutrophils % 53.4 % (37.0-80.0); Platelet Count 231 K/mm3 (142-424); Red Blood Count 5.52 M/mm3 (4.60-6.20); Red Cell Distribution Width 11.8 % (11.5-17.5); White Blood Count 10.1 K/mm3 (4.8-10.8)
[2024-10-30 21:49] LABS: VBG Base Excess -1.6 mmol/L (-2.4-2.3); VBG HCO3 23.1 mmol/L (23-30); VBG Oxygen Saturation 79.8 % (50-70); VBG PCO2 37.4 mmol/L (35-51); VBG PH 7.41 mmol/L (7.31-7.41); VBG PO2 41.1 mmol/L (28-40); VBG Total CO2 24.2 mmol/L (23-27)
[2024-10-30 21:50] LABS: Lactate Venous 2.1 mmol/L (0.4-2.0)
[2024-10-30 21:51] LABS: Albumin Level 4.6 g/dl (3.5-5.0); Chloride 100 mmol/L (98-107); Potassium 3.3 mmoL/L (3.5-5.1); Sodium 140 mmol/L (136-145)
[2024-10-30 21:53] LABS: Blood Urea Nitrogen 18 mg/dl (9-20); Creatinine Clearance Estimated 102 mL/min (50-200); Estimated Glomerular Filt Rate 91 ml/min (>60); GFR (African American) 110 ML/MIN (>60)
[2024-10-30 21:54] LABS: Alanine Aminotransferase 35 U/L (12-78); Albumin/Globulin Ratio 1.8 (1.1-1.8); Alkaline Phosphatase 88 U/L (38-126); Anion Gap 15.3 mEq/L (5-15); Aspartate Amino Transferase 41 U/L (17-59); Bilirubin,Total 0.9 mg/dl (0.2-1.3); Calcium 9.7 mg/dl (8.4-10.2); Carbon Dioxide 28 mmol/L (22.0-30.0); Globulin 2.5 g/dL (1.3-3.2); Glucose 112 mg/dl (74-100); Magnesium 2.2 mg/dl (1.6-2.3); Total Protein,Serum 7.1 g/dl (6.3-8.2)
[2024-10-30 21:57] LABS: Activated Partial Thrombo Time 23.3 seconds (22.8-30.6); INR 0.92 (0.9-1.1); Prothrombin Time 10.4 seconds (10.1-12.5)
[2024-10-30 22:00] VITALS: BP 125/71; PULSE 93; RESP 16; O2SAT 92
[2024-10-30 22:04] LABS: NT Pro Brain Natriuretic Pep. < 20.0 pg/mL (0-125)
[2024-10-30 22:09] LABS: D-Dimer 0.71 ug/mL (0.0-0.5)
[2024-10-30 22:11] LABS: T4 (Thyroxine) 8.4 ug/dl (5.53-11.0)
[2024-10-30] MEDS: POTASSIUM CHLORIDE 20MEQ TAB 60 MEQ PO (22:19)
[2024-10-30 22:21] LABS: Troponin I < 0.01 ng/ml (0.00-0.034)
[2024-10-30 22:25] LABS: Thyroid Stimulating Hormone 1.75 uIU/mL (0.465-4.68)
--- NOTE | 2024-10-30 22:25 | CT_ITS ---
PROCEDURE INFORMATION: Exam: CTA Chest With Contrast Exam date and time: 10/30/2024 10:42 PM Age: 23 years old Clinical indication: Other: SOA cp presyncope, tachycardia TECHNIQUE: Imaging protocol: Computed tomographic angiography of the chest with contrast. Exam focused on the arteries. 3D rendering (Not supervised by radiologist): MIP and/or 3D reconstructed images were created by the technologist. Radiation optimization: All CT scans at this facility use at least one of these dose optimization techniques: automated exposure control; mA and/or kV adjustment per patient size (includes targeted exams where dose is matched to clinical indication); or iterative reconstruction. Contrast material: ISOVUE 370; Contrast volume: 70 ml; Contrast route: INTRAVENOUS (IV); COMPARISON: CT ANGIO CHEST PE PROTOCOL 12/19/2022 12:50 AM FINDINGS: Pulmonary arteries: No pulmonary emboli. Aorta: Unremarkable. No aortic aneurysm. No aortic dissection. Lungs: Calcified right pulmonary granulomas. Scattered cysts measuring up to 1.3 cm in superior segment right lower lobe. No consolidation. No masses. Pleural spaces: Unremarkable. No pneumothorax. No pleural effusion. Heart: Unremarkable. No cardiomegaly. No pericardial effusion. Lymph nodes: Calcified mediastinal and right hilar lymph nodes. No enlarged lymph nodes. Bones/joints: Unremarkable. No acute fracture. Soft tissues: Unremarkable. IMPRESSION: No acute findings.
[2024-10-30 22:30] VITALS: BP 127/89; PULSE 88; RESP 14; O2SAT 97
[2024-10-30 22:46] LABS: HIV Combo NEGATIVE (Negative)
[2024-10-30] MEDS: 0.9 % SODIUM CHLORIDE 50 ML VIAL IV (22:49)
[2024-10-30] MEDS: IOPAMIDOL-370 (76%);100ML BOTTLE 70 ML IV (22:50)
[2024-10-30] MEDS: SODIUM CHLORIDE 0.9% 10ML SYR (RAD ONLY) 10 ML IV (22:50)
[2024-10-30 23:01] VITALS: BP 111/66; PULSE 85; RESP 21; O2SAT 95
[2024-10-30] MEDS: 0.9 % SODIUM CHLORIDE 1000ML 1,000 ML 999 ML IV (23:21)
[2024-10-30 23:30] VITALS: BP 128/74; PULSE 84; RESP 15; O2SAT 95
[2024-10-31 00:01] VITALS: BP 115/67; PULSE 78; RESP 17; O2SAT 97
[2024-10-31 00:22] VITALS: BP 115/67; PULSE 68; RESP 18; O2SAT 97
[2024-10-31 00:30] VITALS: BP 107/55; PULSE 66; RESP 17; O2SAT 98
[2024-10-31 01:07] LABS: Troponin I < 0.01 ng/ml (0.00-0.034)
--- NOTE | 2024-10-31 01:18 | PC.NURSE ---
Pt ambulated through ED No chest pain NO dizziness reported. Upon return to room Pt in NSR at rate of 88bpm'
[2024-10-31 01:28] VITALS: BP 114/64; PULSE 70; RESP 18; TEMP 36.6; O2SAT 98
--- NOTE | 2024-10-31 01:29 | PC.NURSE ---
IV removed. Catheter tip intact. Bleeding controlled.
[2024-10-31 01:51] LABS: Reflex Lactic Add Lactic Reflex
[2024-11-02 05:53] LABS: HCV Ab Non Reactive (Non Reactive)
== END 2024-10-31 01:33 | disposition home or self-care (01) ==
PROVIDERS: Emergency Provider Emergency Medicine; PCP Internal Medicine
DX: R07.9 Chest pain, unspecified (principal); R00.0 Tachycardia, unspecified; R55 Syncope and collapse
CPT/HCPCS: 71045; 71275; 80050; 80053; 82803; 83735; 83880; 84436; 84443; 84484; 85025; 85378; 85610; 85730; 86803; 87389; 93005; 96360; 99285; J7030; Q9967

== ENCOUNTER 2024-11-02 09:00 | Emergency (ER) | payer BC, SELFPAY ==
[2024-11-02 09:10] VITALS: BP 149/97; PULSE 72; RESP 20; TEMP 36.7; O2SAT 98; BMI 42.6
[2024-11-02 09:34] LABS: UTC Influenza A Antigen Negative (Negative); UTC Influenza B Antigen Negative (Negative)
--- NOTE | 2024-11-02 09:44 | EXP.UTC ---
Discharge Plan Disposition Patient Disposition: Home, Self-Care Condition: Good Prescriptions Prescriptions: New amoxicillin 875 mg tablet 875 mg PO BID 10 Days Qty: 20 0RF fluticasone propionate [Flonase Allergy Relief] 50 mcg/actuation spray,suspension 1 spray intranasal DAILY Qty: 16 0RF Rx Instructions: administer into each nostril Referrals Follow up/Referrals: Isaak Goodrich DO [Primary Care Provider] - See instructions Activity Restrictions/Add. Instructions Additional Instructions/Restrictions: If symptoms persist or worsen and drainage turns to green you may start antibiotic. Use Flonase as prescribed. Follow up with primary care provider concerning blood pressure. Stop any NyQuyil or OTC cold medications. May use Coricidin HBP for cold symptoms. Monitor blood pressure 3 times a week at different times and take results with you to your primary care visit. Clinical Impressions Clinical Impression: High blood pressure determined by examination Acute sinus infection Qualifiers: Sinusitis location: frontal Recurrence: non-recurrent Qualified Code(s): J01.10 - Acute frontal sinusitis, unspecified Stand Alone Forms Stand Alone Forms: Work/School Release Instructions Patient Instructions: DI for Sinusitis, DI for High Blood Pressure, Recommendations to Help Prevent High Blood Pressure, Treatments for High Blood Pressure: More Than Just Taking a Pill Print Language Print Language: Iranian Discharge ED Provider: Dejah Ross [facility] General Stated complaint: congestion, sinus drainage Mode of Arrival: Ambulatory Source of Information: Patient Limitations: No Limitations Time Seen by Provider: 11/02/24 09:45 Description of Symptoms (Recalled from Triage Doc. by RN): PATIENT C/O CONGESTION, RUNNY NOSE AND BODY ACHES THAT STARTED LAST TUESDAY HEENT Symptoms (Recalled from RN notes): Yes Resp Symptoms (Recalled from RN notes): No Skin Symptoms (Recalled from RN notes): No MS Symptoms (Recalled from RN notes): No Functional Status (Recalled from RN notes): WNL History of Present Illness Provider Complaint: Pt reports that had rhinovirus a week ago and he assumed he had the same thing but his symptoms have lasted longer and he now has thick yellow brown nasal drainage with occasional blood. He states that he has been using Nyquil and DayQuil at home for his symptoms. He denies any fever. Related Data Previous Rx's ?Medication ?Instructions ?Recorded amoxicillin 875 mg tablet 875 mg PO BID 10 days #20 tabs 11/02/24 fluticasone propionate 50 1 spray intranasal DAILY #16 grams 11/02/24 mcg/actuation nasal spray,suspension (Flonase Allergy Relief) Allergies Allergy/AdvReac Type Severity Reaction Status Date / Time No Known Allergies Allergy Verified 09/28/23 13:00 Worker's Comp Is this a Worker's Comp case?: No [facility] Disclaimer: The information contained in this section may have been updated after the patient was seen, as this information can be updated by other users. Medical History ADHD Established with Tatum Pena with [facility] in [place] Chest pain COVID-19 Elbow pain Exposure to COVID-19 virus High cholesterol Laceration of leg not thigh, left Muscle spasm Otitis media Pain, dental Pharyngitis Rash and nonspecific skin eruption Sinusitis Sinusitis Vitamin D deficiency Surgical History No history of previous surgery S/P tooth extraction Family History Mother Cancer thyroid Social History (Updated 09/28/23 @ 13:02 by Daphney Elizalde CMA) Smoking Status: Never smoker alcohol intake: current alcohol intake frequency: a few times a month substance use type: denies use current occupational status: employed Travel in the last 8 weeks: None household members: family housing: house ROS Obtained: Yes All systems reviewed & no additional complaints except as documented Constitutional Constitutional: Reports system reviewed and no additional complaints, except as documented and Reports headache(s) Eyes Eyes: Reports system reviewed and no additional complaints, except as documented ENT Ears, Nose, Mouth, and Throat: Reports system reviewed and no additional complaints, except as documented, Reports headache(s), Reports nasal congestion and Reports nasal discharge Cardiovascular Cardiovascular: Reports system reviewed and no additional complaints, except as documented Respiratory Respiratory: Reports system reviewed and no additional complaints, except as documented Gastrointestinal Gastrointestingal: Reports system reviewed and no additional complaints, except as documented Genitourinary Male Genitourinary: Reports system reviewed and no additional complaints, except as documented Musculoskeletal Musculoskeletal: Reports system reviewed and no additional complaints, except as documented Integumentary/Breasts Skin/Breast: Reports system reviewed and no additional complaints, except as documented Neurologic Neurologic: Reports system reviewed and no additional complaints, except as documented and Reports headache(s) Endocrine Endocrine: Reports system reviewed and no additional complaints, except as documented Hematologic/Lymphatic Henatologic/Lymphatic: Reports system reviewed and no additional complaints, except as documented Allergic/Immunologic Allergic/Immunologic: Reports system reviewed and no additional complaints, except as documented Physical Exam General General appearance: alert and in no apparent distress Head Head exam: atraumatic and normocephalic Eye Eye exam: Present normal appearance Expanded ENT Exam External ear exam: Present normal external inspection Nose exam: Present sinus tenderness (frontal) Nasal speculum exam: Bilateral: purulent discharge Mouth exam: Present normal external inspection Teeth exam: Present normal inspection Throat exam: Present normal inspection Neck Neck exam: Present normal inspection; Absent lymphadenopathy Chest Chest inspection: Present normal inspection and symmetric chest wall rise Respiratory Respiratory exam: Present normal lung sounds bilaterally Cardiovascular Cardiovascular exam: Present regular rate and normal rhythm Abdominal Exam Abdominal exam: Present soft Extremities Exam Extremities exam: Present normal inspection Back Exam Back exam: Present normal inspection Neurological Exam Neurological exam: Present alert and oriented X3 Psychiatric Psychiatric exam: Present normal affect Skin Skin exam: Present warm, dry and intact Lymphatic Lymphatic Findings: no adenopathy Medical Decision Making Medical Records Screening: Per USPSTF and CDC recommendations, given the prevalence of disease in our region, it is our hospital?s policy to screen for HIV and viral Hepatitis for all patients aged 18 and over and those with ongoing risk factors. Pipo Inquiry Pt receiving controlled substance: No Pipo was queried for this patient: No Vital Signs: 11/02/24 09:10 Temperature 98.1 F Temperature Source Oral Pulse Rate [Left Brachial] 72 Respiratory Rate 20 Blood Pressure [Left Arm] 149/97 H Blood Pressure Mean [Left Arm] 114 Blood Pressure Source [Left Arm] Automatic Cuff Blood Pressure Position [Left Arm] Sitting 02 Sat by Pulse Oximetry 98 Oxygen Delivery Method Room Air Lab Data Lab results reviewed: Yes I reviewed the patient's lab results. Lab Results 11/02/24 09:20: Influenza Type A Ag Negative, Influenza Type B Ag Negative
[2024-11-02 09:58] VITALS: BP 152/93
[2024-11-02 10:04] VITALS: BP 149/97; PULSE 72; RESP 20; TEMP 36.7; O2SAT 98
== END 2024-11-02 10:07 | disposition home or self-care (01) ==
PROVIDERS: Emergency Provider Nurse Practitioner Family; PCP Internal Medicine
DX: I10 Essential (primary) hypertension (principal); J01.10 Acute frontal sinusitis, unspecified; R51.9 Headache, unspecified
CPT/HCPCS: 87804; 99212; G0381

== ENCOUNTER 2024-11-22 07:52 | Outpatient (CLI) | payer BC, SELFPAY ==
--- NOTE | 2024-11-22 07:59 | CA_ITS ---
APPROVED REPORT EXAM: Comprehensive 2D, Doppler, and color-flow Echocardiogram Plush Cutter: Karina Noonan RVT Ht: 5 ft 6 in Wt: 260lbs BSA: 2.24 BP: 146/99 mmHg Indications: HTN,ABN EKG,CP,HLD,SOA 2D Dimensions EF AP4 50.10 % GL Strain -14.1 % M-Mode Dimensions RVDd 2.74 cm (0.9-2.6) LA Diam 3.88 cm (1.9-4.0) LVDd 4.39 cm (3.5-5.7) LVDs 2.74 cm (3.5-5.7) IVSd 1.17 cm (0.6-1.1) PWd 0.85 cm (0.6-1.1) EF (Teich) 67.90% FS 37.60% EDV (Teich) 87.20 mL ESV (Teich) 28.00 mL LV Diastology E Decel Time 150 (160-240 msec) E/A Ratio 1.1 Aortic Valve LARON Index 1.12 cm2/m2 AoV Peak Harpreet. 86.0 (50-130 cm/s) AO Peak GR. 3.00 mmHg AO Mean GR. 1.70 (<5 mmHg) AO VTI 15.5 (18-25 cm) LARON (VTI) 2.57 (2.5-4.5 cm2) Mitral Valve MV E Max Harpreet. 58.0 (40-130 cm/s) MV A Velocity 52.0 (40-130 cm/s) E/A Ratio 1.13 MV PHT 44.0 ms Pulmonary Valve PV Peak Velocity 59.0 (50-150 cm/s) Tricuspid Valve TR P. Velocity 229.00 cm/s RAP Estimate 10.00 mmHg RVSP 31.00 mmHg Left Ventricle The left ventricle is normal size. The left ventricular systolic function is low normal. There is normal left ventricular wall thickness. There is normal LV segmental wall motion. The left ventricular diastolic function is normal. LVEF is 50%. Right Ventricle Right ventricle is moderately dilated. Right ventricle is mildly hypokinetic. The basal RV segments are relatively hypokinetic compared to the RV apex. Atria The left atrium size is normal. The right atrium size is normal. There is no Doppler evidence of interatrial shunt. Aortic Valve The aortic valve opens well. There is no aortic valvular stenosis. No aortic regurgitation is present. Mitral Valve The mitral valve is normal in structure. No evidence of mitral valve stenosis. There is no mitral valve regurgitation noted. Tricuspid Valve Tricuspid valve is grossly normal in structure and function. Trace tricuspid regurgitation. There is insufficient TR jet to estimate RVSP. Pulmonic Valve The pulmonary valve is normal in structure. Trace pulmonic regurgitation. Great Vessels The aortic root is normal in size. The ascending aorta is not well-visualized. IVC is normal in size and collapses >50% with inspiration. Pericardium There is no pericardial effusion. Other Information Study Quality: Fair Conclusion Low normal LV systolic function (LVEF 50%). Moderate RV dilation with mild reduction in RV function. The basal RV segments are relatively hypokinetic compared to the RV apex. No significant valvular stenosis or regurgitation. In the setting of RV dysfunction, further evaluation with limited TTE + agitated saline administration (bubble study) to evaluate for interatrial shunt is suggested. Also, outpatient cardiac MRI ([facility] protocol) is recommended in the context of RV dysfunction and EKG abnormalities. Electronically signed by : Racquel Hassan MD 11/27/2024 14:23:11
--- NOTE | 2024-11-22 07:59 | CA_ITS ---
FINAL REPORT CLINICAL HISTORY: HTN FINDINGS: Aorta velocity: 173 cm/sec Right kidney: 12.1 cm. No evidence of hydronephrosis or mass. Right intrarenal RI: 0.56 Right renal artery velocity: 145 cm/sec. Right RAR (Renal artery-Aortic Ratio): 0.83 Left Kidney: 12.4 cm. No evidence of hydronephrosis or mass. Left intrarenal RI: 0.58 Left renal artery velocity: 292 cm/sec. Left RAR (Renal Artery-Aortic Ratio): 1.7 IMPRESSION: No evidence of significant renal artery stenosis on the right. Less than 60% renal artery stenosis on the left. CT angiogram would be more sensitive for evaluation of possible renal artery stenosis. Reviewed, Interpreted and Dictated by Tien Goodman MD Transcribed by Tarah Travis Authenticated and [facility][1]
--- NOTE | 2024-11-22 08:43 | US_ITS ---
FINAL REPORT CLINICAL HISTORY: R94.31 - Abnormal electrocardiogram ECG EKG FINDINGS: RENAL ULTRASOUND Ultrasound images of the kidneys were obtained. There is fatty infiltration of the liver. The right kidney measures 11.6 cm in length. It is normal echogenicity. There is no hydronephrosis. The left kidney measures 10.3 cm in length. It is normal echogenicity. There is no hydronephrosis. The spleen is unremarkable. IMPRESSION: Fatty liver. Reviewed, Interpreted and Dictated by Tien Goodman MD Transcribed by Tarah Travis Authenticated and [facility]
== END 2024-11-22 23:59 | disposition home or self-care (01) ==
LOC: RT 07:55
PROVIDERS: PCP Internal Medicine; Visit Provider Physician Assistant
DX: I10 Essential (primary) hypertension (principal); R94.31 Abnormal electrocardiogram [ECG] [EKG]
CPT/HCPCS: 76770; 93306; 93976

== ENCOUNTER 2024-11-28 15:48 | Emergency (ER) | payer BC, SELFPAY ==
--- NOTE | 2024-11-28 15:46 | ECG_ITS ---
APPROVED REPORT Exam: Resting ECG HR:87 bpm ECG Measurements Heart Rate 87 AXES NC 126 P 21 QRSd 114 QRS 42 QT 361 T -9 QTc 405 Conclusion SINUS RHYTHM MODERATE INTRAVENTRICULAR CONDUCTION DELAY [110+ ms QRS DURATION] BORDERLINE ECG UNCONFIRMED REPORT Electronically signed by : VALERIA GREER, 12/01/2024 00:43:22
[2024-11-28 15:48] VITALS: BP 167/96; PULSE 90; RESP 20; TEMP 36.7; O2SAT 98; BMI 43.0
--- NOTE | 2024-11-28 15:59 | ED_ITS ---
Discharge Plan Disposition Patient Disposition: Home, Self-Care Condition: Good Prescriptions Prescriptions: No Action dextroamphetamine-amphetamine 10 mg tablet 10 mg PO DAILY Qty: 30 0RF Referrals Follow up/Referrals: Provider,Referral, MD [Referring] - See instructions Activity Restrictions/Add. Instructions Additional Instructions/Restrictions: Please follow-up with your cardiology appointment tomorrow for stress testing. Follow-up with your PCP for recheck. If you have any new worsening signs or symptoms return to the ER as needed. Clinical Impressions Clinical Impression: Chest pain Qualifiers: Chest pain type: unspecified Qualified Code(s): R07.9 - Chest pain, unspecified Print Language Print Language: Mauritanian Discharge ED Provider: Chele Chambers General Adult HPI <TEJINDER López - Last Filed: 11/28/24 21:36> General Chief complaint: Chest Pain Stated complaint: chest pain Time Seen by Provider: 11/28/24 15:59 History of Present Illness HPI narrative: Patient presents for evaluation of chest pain. Patient states that he was driving and felt a left-sided sharp pain that began around to his axilla. He did not last but more than a couple of minutes. Patient is concerned that it may be his heart in nature. He was seen by cardiology recently and actually has a stress test planned for tomorrow. He denies any shortness of breath fever chills hemoptysis hematochezia melena nausea vomit diarrhea. Patient does report that he has a history of ADHD and anxiety however he is not currently being medicated but is being evaluated for reinitiation of those medications. Related Data Previous Rx's ?Medication ?Instructions ?Recorded dextroamphetamine-amphetamine 10 10 mg PO DAILY ADHD #30 tabs 11/28/24 mg tablet Allergies Allergy/AdvReac Type Severity Reaction Status Date / Time No Known Allergies Allergy Verified 11/28/24 09:21 [facility] <TEJINDER López - Last Filed: 11/28/24 21:36> [facility] Disclaimer: The information contained in this section may have been updated after the patient was seen, as this information can be updated by other users. Medical History Abnormal ECG HTN (hypertension) Otitis media Sinusitis Rash and nonspecific skin eruption Vitamin D deficiency High cholesterol ADHD Established with [facility] with life [facility] in [place] Chest pain COVID-19 Muscle spasm Sinusitis Exposure to COVID-19 virus Pharyngitis Elbow pain Pain, dental Laceration of leg not thigh, left Surgical History No history of previous surgery S/P tooth extraction Family History Mother Cancer thyroid Social History Smoking Status: Former smoker alcohol intake: current alcohol intake frequency: a few times a month substance use type: denies use current occupational status: employed Travel in the last 8 weeks: None household members: family housing: house Have you lived/traveled outside US in past 30 days?: No Contact w/someone who lives/traveled outside US past 30 days?: No Exposure to someone with infectious disease in past 14 days?: No Do you have a fever (greater than 100.4 F or 38 C)?: No Have you tested positive for COVID-19: No Exposed to someone with COVID-19 in past 14 days?: No Do you have a sore throat?: No Do you have a cough?: No Do you have any weakness?: No Do you have any diarrhea?: No Are you experiencing any unusual bleeding?: No Do you have any muscle aches/pain?: No Do you have any abdominal pain?: No Are you experiencing loss of taste or smell?: No Other Medical History Have you received the Flu Vaccine for this season: No Have you received the Pneumonia Vaccine: No <TEJINDER López - Last Filed: 11/28/24 21:36> ROS Obtained: Yes Systems reviewed as appropriate & no additional complaints except as documented Physical Exam <TEJINDER López - Last Filed: 11/28/24 21:36> General General appearance: alert and in no apparent distress Respiratory Respiratory exam: Present normal lung sounds bilaterally Cardiovascular Cardiovascular exam: Present regular rate Neurological Exam Neurological exam: Present alert and oriented X3 Medical Decision Making <TEJINDER López - Last Filed: 11/28/24 21:36> Medical Records Medical records reviewed: Yes I reviewed the patient's medical records. Screening: Per USPSTF and CDC recommendations, given the prevalence of disease in our region, it is our hospital?s policy to screen for HIV and viral Hepatitis for all patients aged 18 and over and those with ongoing risk factors. Pipo Inquiry Pt receiving controlled substance: No Vital Signs: 11/28/24 15:48 11/28/24 16:00 11/28/24 16:17 Temperature 98.0 F Temperature Source Oral Pulse Rate 87 86 Pulse Rate [Right] 90 Respiratory Rate 20 19 13 Blood Pressure 126/86 139/92 H Blood Pressure [Right Arm] 167/96 H Blood Pressure Mean [Right Arm] 119 Blood Pressure Source Blood Pressure Source [Right Arm] Automatic Cuff Blood Pressure Position 02 Sat by Pulse Oximetry 98 96 96 Oxygen Delivery Method Room Air Room Air Room Air 11/28/24 17:00 11/28/24 17:30 11/28/24 19:02 Temperature 98.3 F Temperature Source Oral Pulse Rate 95 H 84 96 H Pulse Rate [Right] Respiratory Rate 17 13 18 Blood Pressure 126/87 127/81 127/87 Blood Pressure [Right Arm] Blood Pressure Mean [Right Arm] Blood Pressure Source Automatic Cuff Blood Pressure Source [Right Arm] Blood Pressure Position Sitting 02 Sat by Pulse Oximetry 95 97 Oxygen Delivery Method Room Air Room Air Room Air Lab Data Lab results reviewed: Yes I reviewed the patient's lab results. Lab Results 11/28/24 15:50: WBC 10.3, RBC 5.76, Hgb 18.7 H, Hct 50.5, MCV 87.7, MCH 32.5 H, MCHC 37.0 H, RDW 12.1, Plt Count 235, MPV 9.2, Neut % (Auto) 57.1, Lymph % (Auto) 32.9, [place] % (Auto) 7.3, Eos % (Auto) 1.2, Baso % (Auto) 0.9, Neut # (Auto) 5.9, Lymph # (Auto) 3.4, [place] # (Auto) 0.8, Eos # (Auto) 0.1, Baso # (Auto) 0.1, Sodium 139, Potassium 3.8, Chloride 100, Carbon Dioxide 27, Anion Gap 15.8 H, BUN 14, Creatinine 0.80, Estimated Creat Clear 126, Estimated GFR 117, Est GFR ( Amer) 141, Glucose 86, Calcium 9.5, Total Bilirubin 1.1, AST 49, ALT 42, Alkaline Phosphatase 97, Troponin I < 0.01, Total Protein 7.6, Albumin 4.8, Globulin 2.8, Albumin/Globulin Ratio 1.7 11/28/24 18:06: Troponin I < 0.01 11/28/24 15:50 11/28/24 15:50 Orders (Tests/Meds): ED MEDICATIONS Discontinued Medications Generic Name Dose Route Start Last Admin Trade Name Freq PRN Reason Stop Dose Admin Belladonna Alkaloids 60 ml 11/28/24 16:21 11/28/24 16:34 Belladonna Alkaloids 60 Ml Ml PO 11/28/24 16:22 60 ml ONCE ONE Administration ORDERS Category Date Time Status Chest XR 2 view (NOT portable) [XR chest 2V] Stat Exams 11/28/24 16:21 Completed Complete Blood Count Auto Diff Stat Lab 11/28/24 15:50 Completed Comprehensive Metabolic Panel Stat Lab 11/28/24 15:50 Completed Troponin I Q3H Lab 11/28/24 18:06 Completed Troponin I Stat Lab 11/28/24 15:50 Completed HEART Score History (anamnesis): Slightly suspicious ECG: Normal Age: <45 years Risk factors: 3 or more risk factors Troponin: </= normal limit HEART Score: 2 Medical Decision Narrative: In summary patient is a 24-year-old male who presents to the emergency department for evaluation of chest pain. Patient is initially hypertensive at 167/96 with a pulse of 90 respiratory rate 20 satting at 98% on room air normal sinus rhythm on the bedside monitor upon arrival, afebrile. Physical exam is remarkable for clear breath sounds normal heart sounds no increased work of breathing Butler Coma Score 15 patient is awake alert and oriented person place circumstance.. Differential diagnosis includes ACS versus anxiety versus electrolyte abnormality etc. Initial workup will be conducted with hematologic labs twelve-lead EKG plain film chest x-ray.. Initial interventions include GI cocktail. Initial workup reviewed by me shows that his initial hematologic labs are nonactionable and his troponin is undetectable. Given this the patient was placed in observation status at 1723. Medical necessity for observational status is serial troponins. The patient was provided serial reevaluations continuous cardiac monitoring and pulse oximetry while awaiting results. Results of testing during observation period is remarkable for a negative second troponin. Patient remains asymptomatic now on reevaluation before discharge. Because of these results patient is appropriate for discharge with follow-up with cardiology as scheduled for stress testing.. Total time in observation was 90 minutes. <Chele Chambers MD - Last Filed: 11/29/24 04:18> Vital Signs: 11/28/24 15:48 11/28/24 16:00 11/28/24 16:17 Temperature 98.0 F Temperature Source Oral Pulse Rate 87 86 Pulse Rate [Right] 90 Respiratory Rate 20 19 13 Blood Pressure 126/86 139/92 H Blood Pressure [Right Arm] 167/96 H Blood Pressure Mean [Right Arm] 119 Blood Pressure Source Blood Pressure Source [Right Arm] Automatic Cuff Blood Pressure Position 02 Sat by Pulse Oximetry 98 96 96 Oxygen Delivery Method Room Air Room Air Room Air 11/28/24 17:00 11/28/24 17:30 11/28/24 19:02 Temperature 98.3 F Temperature Source Oral Pulse Rate 95 H 84 96 H Pulse Rate [Right] Respiratory Rate 17 13 18 Blood Pressure 126/87 127/81 127/87 Blood Pressure [Right Arm] Blood Pressure Mean [Right Arm] Blood Pressure Source Automatic Cuff Blood Pressure Source [Right Arm] Blood Pressure Position Sitting 02 Sat by Pulse Oximetry 95 97 Oxygen Delivery Method Room Air Room Air Room Air Lab Data Lab Results 11/28/24 15:50: WBC 10.3, RBC 5.76, Hgb 18.7 H, Hct 50.5, MCV 87.7, MCH 32.5 H, MCHC 37.0 H, RDW 12.1, Plt Count 235, MPV 9.2, Neut % (Auto) 57.1, Lymph % (Auto) 32.9, [place] % (Auto) 7.3, Eos % (Auto) 1.2, Baso % (Auto) 0.9, Neut # (Auto) 5.9, Lymph # (Auto) 3.4, [place] # (Auto) 0.8, Eos # (Auto) 0.1, Baso # (Auto) 0.1, Sodium 139, Potassium 3.8, Chloride 100, Carbon Dioxide 27, Anion Gap 15.8 H, BUN 14, Creatinine 0.80, Estimated Creat Clear 126, Estimated GFR 117, Est GFR ( Amer) 141, Glucose 86, Calcium 9.5, Total Bilirubin 1.1, AST 49, ALT 42, Alkaline Phosphatase 97, Troponin I < 0.01, Total Protein 7.6, Albumin 4.8, Globulin 2.8, Albumin/Globulin Ratio 1.7 11/28/24 18:06: Troponin I < 0.01 Orders (Tests/Meds): ED MEDICATIONS Discontinued Medications Generic Name Dose Route Start Last Admin Trade Name Freq PRN Reason Stop Dose Admin Belladonna Alkaloids 60 ml 11/28/24 16:21 11/28/24 16:34 Belladonna Alkaloids 60 Ml Ml PO 11/28/24 16:22 60 ml ONCE ONE Administration ORDERS Category Date Time Status Chest XR 2 view (NOT portable) [XR chest 2V] Stat Exams 11/28/24 16:21 Completed Complete Blood Count Auto Diff Stat Lab 11/28/24 15:50 Completed Comprehensive Metabolic Panel Stat Lab 11/28/24 15:50 Completed Troponin I Q3H Lab 11/28/24 18:06 Completed Troponin I Stat Lab 11/28/24 15:50 Completed ECG Data Tracing #1: I reviewed this ECG and interpreted as documented below: EKG interpreted by me personally. Normal sinus rhythm. No ST elevation or depression. Inverted T waves in lead III and aVF. QTc normal at 405. VT interval normal at 126. Ventricular rate of 87 bpm HEART Score HEART Score: 2 Medical Decision Narrative: In summary patient is a 24-year-old male who presents to the emergency department for evaluation of chest pain. Patient is initially hypertensive at 167/96 with a pulse of 90 respiratory rate 20 satting at 98% on room air normal sinus rhythm on the bedside monitor upon arrival, afebrile. Physical exam is remarkable for clear breath sounds normal heart sounds no increased work of breathing Butler Coma Score 15 patient is awake alert and oriented person place circumstance.. Differential diagnosis includes ACS versus anxiety versus electrolyte abnormality etc. Initial workup will be conducted with hematologic labs twelve-lead EKG plain film chest x-ray.. Initial interventions include GI cocktail. Initial workup reviewed by me shows that his initial hematologic labs are nonactionable and his troponin is undetectable. Given this the patient was placed in observation status at 1723. Medical necessity for observational status is serial troponins. The patient was provided serial reevaluations continuous cardiac monitoring and pulse oximetry while awaiting results. Results of testing during observation period is remarkable for a negative second troponin. Patient remains asymptomatic now on reevaluation before discharge. Because of these results patient is appropriate for discharge with follow-up with cardiology as scheduled for stress testing.. Total time in observation was 90 minutes. I was consulted by the FIDEL, and we discussed the complexity of the problems being addressed. I approve the treatment and management plan for this patient's care in the emergency department, thus performing a substantive portion of the medical decision making. Chele Chambers MD Critical Care <TEJINDER López - Last Filed: 11/28/24 21:36> Critical Care Time Critical Care Time: No
[2024-11-28 16:00] VITALS: BP 126/86; PULSE 87; RESP 19; O2SAT 96
[2024-11-28 16:00] LABS: Basophils # 0.1 K/mm3 (0-0.2); Basophils % 0.9 % (0.1-2.0); Eosinophils # 0.1 K/mm3 (0.0-0.4); Eosinophils % 1.2 % (0.1-12.0); Hematocrit 50.5 % (42.0-52.0); Lymphocytes # 3.4 K/mm3 (0.7-4.5); Lymphocytes % 32.9 % (10-50); Mean Corpuscular Hemoglobin 32.5 pg (27.0-31.2); Mean Corpuscular Volume 87.7 fl (80-94); Mean Platelet Volume 9.2 fl (7.4-10.4); Monocytes # 0.8 K/mm3 (0.1-1.0); Monocytes % 7.3 % (1.7-9.3); Neutrophils # 5.9 K/mm3 (1.8-7.8); Neutrophils % 57.1 % (37.0-80.0); Platelet Count 235 K/mm3 (142-424); Red Blood Count 5.76 M/mm3 (4.60-6.20); Red Cell Distribution Width 12.1 % (11.5-17.5); White Blood Count 10.3 K/mm3 (4.8-10.8)
[2024-11-28 16:08] LABS: Albumin Level 4.8 g/dl (3.5-5.0); Chloride 100 mmol/L (98-107); Hemoglobin 18.7 g/dL (14.1-18.0); Potassium 3.8 mmoL/L (3.5-5.1); Sodium 139 mmol/L (136-145)
[2024-11-28 16:11] LABS: Alanine Aminotransferase 42 U/L (12-78); Albumin/Globulin Ratio 1.7 (1.1-1.8); Alkaline Phosphatase 97 U/L (38-126); Anion Gap 15.8 mEq/L (5-15); Aspartate Amino Transferase 49 U/L (17-59); Bilirubin,Total 1.1 mg/dl (0.2-1.3); Blood Urea Nitrogen 14 mg/dl (9-20); Carbon Dioxide 27 mmol/L (22.0-30.0); Creatinine Clearance Estimated 126 mL/min (50-200); Estimated Glomerular Filt Rate 117 ml/min (>60); GFR (African American) 141 ML/MIN (>60); Globulin 2.8 g/dL (1.3-3.2); Total Protein,Serum 7.6 g/dl (6.3-8.2)
[2024-11-28 16:12] LABS: Calcium 9.5 mg/dl (8.4-10.2); Glucose 86 mg/dl (74-100)
--- NOTE | 2024-11-28 16:13 | PC.NURSE ---
Rounded on the PT. The PT voices that he does not need anything at this time. Call light is within reach of the PT.Girlfriend is present at the bedside.
[2024-11-28 16:17] VITALS: BP 139/92; PULSE 86; RESP 13; O2SAT 96
--- NOTE | 2024-11-28 16:21 | XR_ITS ---
PROCEDURE INFORMATION: Exam: XR Chest Exam date and time: 11/28/2024 4:18 PM Age: 24 years old Clinical indication: Pain; Chest pressure; Additional info: Chest pain TECHNIQUE: Imaging protocol: Radiologic exam of the chest. Views: 2 views. COMPARISON: CT ANGIO CHEST PE PROTOCOL 10/30/2024 10:42 PM FINDINGS: Lungs: Right lung calcified granuloma is benign. No consolidation. Pleural spaces: Unremarkable. No pleural effusion. No pneumothorax. Heart/Mediastinum: Unremarkable. No cardiomegaly. Bones/joints: Unremarkable. IMPRESSION: No acute findings.
[2024-11-28 16:30] LABS: Troponin I < 0.01 ng/ml (0.00-0.034)
[2024-11-28] MEDS: BELLADONNA ALKALOIDS 60 ML ML PO (16:34)
[2024-11-28 17:00] VITALS: BP 126/87; PULSE 95; RESP 17; O2SAT 95
[2024-11-28 17:30] VITALS: BP 127/81; PULSE 84; RESP 13; O2SAT 97
--- NOTE | 2024-11-28 17:43 | PC.NURSE ---
Rounded on the PT. The PT voices that he does not need anything at this time. Call light is within reach of the PT.
[2024-11-28 18:47] LABS: Troponin I < 0.01 ng/ml (0.00-0.034)
[2024-11-28 19:02] VITALS: BP 127/87; PULSE 96; RESP 18; TEMP 36.8; O2SAT 99
== END 2024-11-28 19:06 | disposition home or self-care (01) ==
PROVIDERS: Emergency Provider Student in an Organized Health Care Education/Training Program; PCP Internal Medicine
DX: R07.9 Chest pain, unspecified (principal)
CPT/HCPCS: 71046; 80053; 84484; 85025; 93005; 99284

== ENCOUNTER 2024-11-29 07:55 | Outpatient (CLI) | payer BC, SELFPAY ==
--- NOTE | 2024-11-29 | CA_ITS ---
APPROVED REPORT Exam: Exercise Treadmill Technologist: Celia Ballesteros Ht: 5 ft 6 in Wt: 260 lbs BSA: 2.24 m2 Rhythm: NSR Stress Test Details Test: Exercise stress testing was performed using a Sagar protocol. HR Resting HR: 73 bpm Max Heart Rate (APMHR): 194 bpm Max HR Achieved: 175 bpm Target HR (85% APMHR): 165 bpm % of APMHR: 90 Recovery HR: 124 bpm HR response to stress: Normal HR response to stress BP Resting BP: 129.0/73.0 mmHg Max BP: 155.0/76.0 mmHg Recovery BP: 142.0/78.0 mmHg BP response to stress: Normal blood pressure response to stress. ECG Resting ECG: NSR, Inferior STT abnormalities, delayed RS transition Stress EC.[address] depression Arrhythmia: None Clinical Exercise duration: 8:59 min Highest Stage Achieved: III Exercise capacity: 10.3 METs Overall Exercise Capacity for Age: Average Stress ECG Conclusion Max HR: 175 % of PM: 90 Max BP: 155/76 METs: 10.3 Test stopped due to: Hip pain (L) Symptoms: No chest pain Arrhythmias/Ectopy: None. ST-T Changes: 0.[address] depression Conclusion: Non-diagnostic ECG stress test due to baseline ECG abnormalities. Myoview images reported separately. Electronically signed by : Racquel Hassan MD 11/30/2024 00:18:20
--- NOTE | 2024-11-29 08:01 | NM_ITS ---
APPROVED REPORT Exam: Nuclear Stress Test Indication: c.p., sob, palpitations Patient Location: Outpatient Stress Tech: Silvana BOSS Tech:Latanya RasmussenINES RT(R)(N) Ht: 5 ft 6 in Wt: 260 lbs HR: 73 bpm BP: 129/73 mmHg BSA: 2.24 m2 TID: 1.10 BMI: 41.9 History: c.p., sob, palpitations Procedure: Patient exercised on Sagar protocol 8:59 minutes and sec, resting heart rate 73 bpm, resting blood pressure 129/73 mmHg, with exercise maximum heart rate achived was 175 bpm which is 90 % of the maximum predicted heart rate and blood pressure was 155/76 mmHg. Test was stopped due to fatigue. Patient denied any complaint of chest pain. Patient has average exercise capacity, achieved 10.3 METs of workload on treadmill, the blood pressure response to exercise was normal. Cardiac Stress and Resting SPECT Images: Cardiac Stress and Resting SPECT images were obtained using technetium 99m Myoview 32.9 mCi stress and 10.30 mCi at rest. Raw images demonstrate significant soft tissue overlap with the cardiac borders. This may affect the diagnostic interpretation of the study findings. Resting and stress imaging in supine and prone positions are straight no evidence of fixed or reversible perfusion defects. Gated imaging demonstrates normal global and regional LV systolic function. LVEF is calculated at 54%. Conclusion: No evidence of fixed or reversible perfusion defects. Gated imaging demonstrates normal global and regional LV systolic function. LVEF is calculated at 54%. Electronically signed by : Racquel Hassan MD 11/30/2024 00:11:37
[2024-11-29] MEDS: ISOTOPE MYOVIEW (PER STUDY) 1 DOSE IV (10:57)
[2024-11-29] MEDS: SODIUM CHLORIDE 0.9% 10ML SYR (RAD ONLY) 10 ML IV ×2 (10:57)
== END 2024-11-29 23:59 | disposition home or self-care (01) ==
PROVIDERS: PCP Internal Medicine; Visit Provider Physician Assistant
DX: R94.31 Abnormal electrocardiogram [ECG] [EKG] (principal); I10 Essential (primary) hypertension
CPT/HCPCS: 78452; 93017; 93018; A9502

== ENCOUNTER 2024-12-28 08:34 | Outpatient (CLI) | payer BC, SELFPAY ==
--- NOTE | 2024-12-28 | CA_ITS ---
APPROVED REPORT EXAM: Comprehensive 2D, Doppler, and color-flow Echocardiogram Gauge Inspector: Latonia Alvarado, RT(R) Ht: 5 ft 6 in Wt: 260lbs BSA: 2.24 BP: 146/99 mmHg Indications: ARVC, HTN, abn EKG, CP, HLD, SOA, ordered as limited echo with bubbles. Echo Enhancing Agent Indication: Rule out Shunt Agent(s) / Amount(s) Used: Agitated Saline 20 cc Other Information Study Quality: Technically Difficult Conclusion There is a limited TTE to evaluate for interatrial shunt. Agitated saline administration is performed. Limited windows are obtained. Technically difficult study. Agitated saline administration at rest, with sniff and Valsalva, demonstrates no clear evidence of interatrial shunt. Electronically signed by : Racquel Hassan MD 12/29/2024 23:01:06
--- NOTE | 2024-12-28 09:13 | MR_ITS ---
APPROVED REPORT Foreign Exchange Position Clerk: CLINICAL INDICATION [facility] evaluation TECHNIQUE Image Acquisition: Cardiac magnetic resonance (CMR) was performed on Siemens Espree MRI 1.5T scanner. Software platform sequences were performed using the Siemens Swing by Swing MR B19 platform. A set of three-plane, low-resolution, large [id number] localizers were initially acquired. Then axial, coronal, sagittal TrueFISP, as well as axial HASTE images, were obtained. These were followed by gated TrueFISP breathold cinematic sequences obtained in the short axis with 8 mm slices and 2 mm gaps, 2-chamber (vertical long axis), 3-chamber, 4-chamber (horizontal long axis). A bolus of contrast was injected intravenously with first-pass sequences obtained in the short axis and four-chamber planes. After approximately 10 minutes, a TI surgical specialist sequence was performed to determine the optimal TI time. Using the optimized TI time, delayed contrast enhancement segmented inversion???recovery TurboFLASH sequences were obtained in the short axis, 2-chamber, 3-chamber, and 4-chamber projections. 2D-velocity phase mapping was performed. Functional parameters were calculated by offline analysis on an independent workstation ([employer], [employer]). Contrast: ProHance??? (Gadoteridol) FINDINGS MORPHOLOGY AND FUNCTION Left ventricle: The left ventricle is normal in size. The indexed left ventricular end-diastolic volume (LVEDVi) is 72 ml/m2 (reference range 57-105 ml/m2 in males, 56-96 ml/m2 in females). Normal left ventricular systolic function is present. There is normal left ventricular wall thickness. There are no regional wall motion abnormalities noted. LVEF is calculated at 56.8% (reference range 57-77%). Right ventricle: The right ventricle is normal in size. The indexed right ventricular end-diastolic volume (RVEDVi) is 76 ml/m2 (reference range 61-121 ml/m2 in males, 48-112 ml/m2 in females). 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 Moderate reduction in right ventricular systolic function. RVEF is calculated at 39.0 % (reference range 52-72% in males, 51-71% in females). Atria: The left atrium is normal in size. The maximum indexed left atrial volume is 26 ml/m2 (reference range 26-52 ml/m2 in males, 27-53 ml/m2 in females). The right atrium is normal in size. The maximum indexed right atrial volume is 28 ml/m2 (reference range 18-90 ml/m2). Aorta: The diameter of the aortic annulus is normal, measuring 26 mm (coronal view reference range 21-30 mm in males, 19-27 mm in females). The diameter of the aortic sinus is normal, measuring 29 mm (coronal view reference range 25-42 mm in males, 24-36 mm in females). The diameter of the sinotubular junction is normal, measuring 21 mm (coronal view reference range 18-32 mm in males, 18-28 mm in females). The diameters of the ascending and descending thoracic aorta are normal. Main pulmonary artery: The main pulmonary artery diameter is normal. Pericardium: The pericardial thickness is normal. The pericardial thickness measures 1.0 mm (normal < 4.0 mm). There is no pericardial effusion. VALVES The valvular morphologies in the visualized sequences appear normal. There is no significant valvular stenosis or regurgitation of the mitral, aortic, tricuspid, or pulmonic valve noted visually. Systolic anterior motion of the mitral valve is not visualized. Ratio of pulmonary to systemic flow, Qp:Qs ratio = 1.0 (normal < or = 1.2, hemodynamically significant shunt > 1.5), demonstrating no evidence of hemodynamically significant shunt. TISSUE CHARACTERIZATION Resting Perfusion: Normal myocardial blood flow at rest. No evidence of resting hypoperfusion. Myocardial Fibrosis and/or edema: Normal gadolinium kinetics are present. No evidence of late gadolinium enhancement is noted, consistent with absence of myocardial scarring, infarction, or necrosis. T2-weighted imaging demonstrates no evidence of myocardial edema or inflammation. OTHER No other significant findings are noted. However, this exam is focused on the cardiac structure and function. IMPRESSION Normal LV size with normal LV systolic function. LVEDVi= 72 ml/m2 and LVEF= 56.8%. Normal RV size with moderate reduction in RV systolic function. 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 RVEDVi= 76 ml/m2 and RVEF= 39.0%. No atrial enlargement. No CMR evidence of myocardial scarring, infarction, or necrosis. No evidence of myocardial edema or inflammation. No evidence of RV fatty infiltration. Perfusion analysis demonstrates normal blood flow at rest with no evidence of resting hypoperfusion. Ratio of pulmonary to systemic flow, Qp:Qs ratio = 1.0 (normal < or = 1.2, hemodynamically significant shunt > 1.5), demonstrating no evidence of hemodynamically significant shunt. 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 The normal Qp:Qs ratio is suggestive against presence of interatrial shunt. Clinical correlation is required. Further evaluation, including heart rhythm monitoring and genetic testing is suggested. Repeat CMR in 3-5 years may be reasonable to re-evaluate biventricular function and progression of regionall RV wall motion abnormalities. COMPARISON None CRITICAL RESULT None COMMUNICATION Per this report The findings of this cardiac MR were reviewed, reported, and signed by Federico Hassan MD ([employer]). Conclusion Electronically signed by : Racquel Hassan MD 12/31/2024 12:29:45
[2024-12-28] MEDS: 0.9% SODIUM CHLORIDE 20ML VIAL 20 ML IV (11:26)
[2024-12-28] MEDS: GADOTERIDOL INJ 20ML SYRINGE 20 ML IV (11:26)
[2024-12-28] MEDS: GADOTERIDOL INJ 10ML SYRINGE 5 ML IV (11:26)
[2024-12-28] MEDS: SODIUM CHLORIDE 0.9% 10ML SYR (RAD ONLY) 10 ML IV (11:26)
== END 2024-12-28 23:59 | disposition home or self-care (01) ==
LOC: RT 08:37
PROVIDERS: PCP Internal Medicine; Visit Provider Physician Assistant
DX: R94.31 Abnormal electrocardiogram [ECG] [EKG] (principal); R55 Syncope and collapse; I42.8 Other cardiomyopathies; I10 Essential (primary) hypertension
CPT/HCPCS: 75561; 93308; A9576

== ENCOUNTER 2025-02-25 17:53 | Outpatient (CLI) | payer BC, SELFPAY | END 2025-02-25 23:59 | disposition home or self-care (01) | LOC: LAB.DROPOF 02-26 13:08 | PROVIDERS: PCP Student in an Organized Health Care Education/Training Program; Visit Provider Student in an Organized Health Care Education/Training Program | DX: R30.0 Dysuria (principal) | CPT/HCPCS: 87086 ==

== ENCOUNTER 2025-03-06 11:48 | Outpatient (CLI) | payer BC, SELFPAY ==
[2025-03-06 12:57] LABS: Chloride 104 mmol/L (98-107); Potassium 4.1 mmoL/L (3.5-5.1); Sodium 139 mmol/L (136-145)
[2025-03-06 13:00] LABS: Anion Gap 10.1 mEq/L (5-15); Blood Urea Nitrogen 13 mg/dl (9-20); Calcium 9.6 mg/dl (8.4-10.2); Carbon Dioxide 29 mmol/L (22.0-30.0); Estimated Glomerular Filt Rate 102 ml/min (>60); GFR (African American) 123 ML/MIN (>60); Glucose 84 mg/dl (74-100)
== END 2025-03-06 23:59 | disposition home or self-care (01) ==
LOC: LAB 11:49
PROVIDERS: Visit Provider Physician Assistant
DX: I10 Essential (primary) hypertension (principal)
CPT/HCPCS: 36415; 80048

== ENCOUNTER 2025-05-29 11:49 | Outpatient (CLI) | payer BC, SELFPAY ==
--- NOTE | 2025-05-29 11:52 | XR_ITS ---
FINAL REPORT CLINICAL HISTORY: cough COMPARISON: 10/30/2024 FINDINGS: PA and lateral views of the chest were obtained. The cardiac and mediastinal silhouettes are within normal limits. The lungs are clear. There is no pleural effusion or pneumothorax. No acute osseous abnormality is identified. IMPRESSION: No radiographic evidence of acute cardiac or pulmonary disease. Reviewed, Interpreted and Dictated by Ximena Hammond MD Transcribed by Tarah Travis Authenticated and [facility]
--- OUTSIDE RECORDS SUMMARY | 2025-05-29 11:52 | XMS_ITS | Encounter Summary ---
Author Organization [facility] Address [address] [place] [address] Care Team Providers Care School Bus Attendant Name Role Phone Unavailable Primary Care Provider Unavailabl e Encounter Details Date Type Department Care Team ([facility] st Contact Info) Description 05/16/2025 Telephone [facility] [place] [address] [facility] [facility], [address] [place] [address] Familia Garcia, BORDER MEASURER [address] [place] [address] Social History Tobacco Use Types Packs/Day Years Used Date Smoking Tobacco: Never Smokeless Tobacco: Never Alcohol Use Standard Drinks/Week Comments Yes 0 (1 standard drink = 0.6 oz pure alcohol) Alcoholic Drinks/day: Consumes alcohol occasionally PHQ-2 Answer Date Recorded Patient Health Questionnaire-2 Score 0 01/16/2025 PHQ-9 Answer Date Recorded Patient Health Questionnaire-9 Score 0 01/16/2025 Sex and Gender Information Value Date Recorded Sex Assigned at Male 11/06/2021 1:54 AM EST Legal Sex Male 8:06 PM EDT Gender Identity Male 11/06/2021 1:54 AM EST Sexual Orientation Straight 11/06/2021 1: 54 AM EST documented as of this encounter Miscellaneous Notes * Telephone Encounter - Estefania Sanon - 05/16/2025 2:12 PM EDT Clinical Concern/Question Reason for Call: Please call patient to discuss Holter monitor results and if he needs any follow up appointment? Best contact number: [phone] (home) Optimal time of day to reach caller: ANYTIME Additional comments/information from caller: None Note: Please do not reply to this message. Follow-up communication and further actions as a result of this message need to be communicated with the patient directly, if the patient is not active onMyChart. If the patient is active on MyChart, they will receive notification of the communication/outcome via [employer]. documented in this encounter Plan of Treatment Not on file documented as of this encounter Visit Diagnoses Not on filedocumented in this encounter Additional Health Concerns Assessment Noted Time PHQ-9 Depression Total Score: 0 01/17/20 25 10:26 AM EDT A fall risk assessment has been complete d for the patient 01/16/2025 10:26 AM EDT A Body Mass Index follow-up plan has been documented for the patient 01/16/2025 11:42 AM EDT documented as of this encounter
--- OUTSIDE RECORDS SUMMARY | 2025-05-29 11:52 | XMS_ITS | Clinical Summary ---
Author Organization [facility] Address [address] [place] [id number] Care Team Providers Care Mail Distributor Name Role Phone Pcp, No Primary Care Provider [phone] Source Comments This information has been disclosed to you from confidential records protectedfrom disclosure by state law. You shall make no further disclosure of thisinformation without the specific, written, and informed release of theindividual to whom it pertains, or as otherwise permitted by law. A generalauthorization for the release of medical or other information is not sufficientfor the purposes of therelease of HIV test results or diagnoses. [id number] Health Medications No known medications Active Problems Problem Noted Date Diagnosed Date Routine screening for STI (sexually transmitted infection) 02/08/2025 Fertility testing 02/08/2025 Social History Tobacco Use Types Packs/Day Years Used Date Smoking Tobacco: Never Assessed Sex and Gender Information Value Date Recorded Sex Assigned at Not on file Legal Sex Male 9:56 AM EDT Gender Identity Not on file Sexual Orientation Not on file Plan of Treatment Health Maintenance Due Date Last Done Comments Immunization: HPV (1 - Male 3-dose series) 2013 Alcohol Misuse Screening 2016 Depression Screening 2016 HIV Screening 2016 Immunization: DTaP/Tdap/Td ( 1 - Tdap) 2017 Immunization: Hepatitis B (1 of 3 - 19+ 3-dose series) 2017 Immunization: COVID-19 ( - season) 2024 Immunization: Influenza (MyChart) (#1) 2025 10/26/2021, 11/21/2020 Hepatitis C Screening (MyChart) Completed 02/08/2025 Immunization: Meningococcal ACWY Aged Out No longer eligible b ased on patient's age to complete this topic Immunization: Pneumococcal Aged Out N o longer eligible based on patient's age to complete this topic Procedures Procedure Name Priority Date/Time Associated Diagnosis Comments HEPATITIS C AB W/REFLEX TO HCV RNA, QN, PCR Routine 02/08/2025 11:28 AM EDT from Last 3 Months or Most Recently Relevant to Health Maintenance Results * Hepatitis C Ab w/reflex to HCV RNA, QN, PCR (02/08/2025 11:28 AM EDT) HCV Ab Non Reactive Non Reactive [facility] 1 02/08/2025 11:2 8 AM EDT 02/08/2025 Narrative [facility] - 02/09/2025 5:06 AM EDT Performed at: - [facility] [id number] [place] Lead: Rohan Quick PhD, Phone: [phone] Kenn Russell MD LAB BLOOD ORDERABLES F inal Result [facility] 1 from Last 3 Months or Most Recently Relevant to Health Maintenance Insurance [employer] Care Teams Mail Distributor Relationship Specialty Start Date End Date Pcp, No No Address PCP - General 02/08/25
--- OUTSIDE RECORDS SUMMARY | 2025-05-29 11:52 | XMS_ITS | Encounter Summary ---
Author Organization [facility] Address [address] [place] [address] Care Team Providers Care Pension Manager Name Role Phone Alberto Daley MD Primary Care Provider Encounter Details Date Type Department Care Team (Late st Contact Info) Description 12/28/2024 Orders Only External Location [address] [place] [address] [place], [place] [address] [place] [facility] [address] [id number] Social History Tobacco Use Types Packs/Day Years Used Date Smoking Tobacco: Never Smokeless Tobacco: Never Alcohol Use Standard Drinks/Week Comments Yes 0 (1 standard drink = 0.6 oz pure alcohol) Alcoholic Drinks/day: Consumes alcohol occasionally PHQ-2 Answer Date Recorded Patient Health Questionnaire-2 Score 0 01/11/2022 Sex and Gender Information Value Date Recorded Sex Assigned at Male 11/06/2021 1:54 AM EST Legal Sex Male 8:06 PM EDT Gender Identity Male 11/06/2021 1:54 AM EST Sexual Orientation Straight 11/06/2021 1: 54 AM EST documented as of this encounter Plan of Treatment Not on file documented as of this encounter Procedures Procedure Name Priority Date/Time Associated Diagnosis Comments MR OUTSIDE IMAGES 12/28/2024 10:28 AM EST documented in this encounter Results * MR transfer of outside films (12/28/2024 10:28 AM EST) Anatomical Region Laterality Modality Magnetic Resonan ce 12/28/2024 10:2 8 AM EST us [facility] IMG MRI PROCEDURES Final Result documented in this encounter Visit Diagnoses Not on filedocumented in this encounter Additional Health Concerns Assessment Noted Time A fall risk assessment has been complete d for the patient 01/11/2022 9:17 AM EDT documented as of this encounter Care Teams Pension Manager Relationship Specialty Start Date End Date Alberto Daley MD [address] [address] PCP - General 03/13/21 04/28/25 documented as of this encounter
--- OUTSIDE RECORDS SUMMARY | 2025-05-29 11:52 | XMS_ITS | Clinical Summary ---
Author Organization [facility] Address [address] [place] [address] Care Team Providers Care Binding Stitcher Name Role Phone Unavailable Primary Care Provider Unavailabl e Allergies No known active allergies Medications UNABLE TO FIND Take 1 each by mouth daily. Amphetamine salts 5 Active valsartan (Diovan) 40 MG tabletIndication s:Essential hypertension Take 1 tablet by mouth daily. 30 tablet 11 5 02/05/20 26 Active metoprolol succinate XL (Toprol-XL) 50 MG 24 hr tablet Take 1 tablet by mouth daily. 5 Active Active Problems Problem Noted Date Diagnosed Date Morbid obesity with body mass index (BMI) of 40. 0 or higher 11/26/2021 ADHD 11/21/2020 Obesity (BMI 30-39.9) 11/21/2020 Encounters Date Type Department Care Team Description 05/16/2025 Telephone [facility] [place] [address] [facility], [address] [place] [address] Familia Garcia APRN from Last 3 Months Immunizations Immunization Administration Dates Next Due Influenza, injectable, quadrivalent 11/21/2020 Influenza, injectable, quadrivalent, preservativ e free 10/26/2021 Family History Medical History Relation Name Comments Thyroid cancer Mother Relation Name Status Comments Mother Social History Tobacco Use Types Packs/Day Years Used Date Smoking Tobacco: Never Smokeless Tobacco: Never Tobacco Cessation:Counseling Given: Not Answered Alcohol Use Standard Drinks/Week Comments Yes 0 [...] Orientation Straight 11/06/2021 1: 54 AM EST Last Filed Vital Signs Vital Sign Reading Time Taken Comments Blood Pressure 135/80 01/16/2025 10:23 AM EDT Pulse 75 01/16/2025 10:23 AM EDT Temperature 36.6 C (97.9 F) 01/04/2023 12:57 AM EST Respiratory Rate 19 01/04/2023 12:57 AM EST Oxygen Saturation 97% 01/16/2025 10:23 AM EDT Inhaled Oxygen Concentration - - Weight 117 kg (258 lb 13.1 oz) 01/16/2025 10:23 AM EDT Height 167.6 cm (5' 6 ) 01/16/2025 10:23 AM EDT Body Mass Index 41.77 01/16/2025 10:23 AM EDT Plan of Treatment Health Maintenance Due Date Last Done Comments [facility]-HIV Screening 1998 [facility]-Hepatitis C Screening 1998 [facility]-/Child/Adol SDOH Screenings 1998 [facility]- SDOH Screenings 2016 [facility]-Adult SDOH Screenings 2016 HPV Vaccines (2 - Male 3-dose series) 07/05/2018 06/07/2018 [facility]-DTaP,Tdap,and Td Vaccines (7 - Td or Tdap) 06/04/2021 06/04/2011, 02/06/2003, 09/14/2001, Additional history exists NSI-DYLOL-88 Vaccine ( season) 2024 [facility]-Influenza Vaccine (#1) 07/01/202510/26, 11/21/2020, 08/29/2008 [facility]-Depression Screening 01/16/2026 01/16/2025, 12/29 [facility]-Zoster Vaccines (1 of 2) 2048 06/04/2011, 02/15/2001 [facility]-Hepatitis B Vaccines Completed 001, 12/01/1999, 1998 [facility]-HIB Vaccines Completed 09/14/2001, 03/2000, 12/01/1999 [facility]-IPV Vaccines Completed 02/06/2003, , 01/04/2000, Additional history exists [facility]-Varicella Vaccines Completed 06/04/2011, 2000 [facility]-Hepatitis A Vaccines Aged Out 03/05/2021, 05/2018 No longer eligible based on patient's age to complete this topic [facility]-Obesity Intervention Completed 025, 01/11/2022, 10/26/2021, Additional history exists [facility]-Pneumococcal Vaccine: Pediatrics (0 to 5 Years) and At-Risk Patients (6 to 49 Years) Aged Out No longer eligible based on patient's age to complete this topic [facility]-Rotavirus Vaccines Aged Out No lo nger eligible based on patient's age to complete this topic Insurance [facility]
[2025-05-29 14:50] LABS: Coronavirus 19, PCR Not Detected (NotDetected); Influenza A, PCR Not Detected (NotDetected); Influenza B, PCR Not Detected (NotDetected)
== END 2025-05-29 23:59 | disposition home or self-care (01) ==
LOC: RAD 11:50
PROVIDERS: PCP Internal Medicine; Visit Provider Student in an Organized Health Care Education/Training Program
DX: R05.1 Acute cough (principal)
CPT/HCPCS: 71046; 87631